=== PATIENT | male | born 1960 | race Caucasian/White ===

== ENCOUNTER → 2019-07-27 13:18 | Outpatient (BNVA) | payer MEDICARE, SELFPAY | PROVIDERS: Visit Provider Family Medicine | DX: G89.4 Chronic pain syndrome (principal); E78.2 Mixed hyperlipidemia; E11.9 Type 2 diabetes mellitus without complications; Z79.4 Long term (current) use of insulin; I10 Essential (primary) hypertension; G62.9 Polyneuropathy, unspecified | CPT/HCPCS: 80053; 80061; 83036; 85025 ==

== ENCOUNTER 2019-11-16 07:52 | Outpatient (CLI) | payer MEDICARE, SELFPAY ==
--- NOTE | 2019-11-16 08:05 | MR_ITS ---
WS: [id number] MRI LUMBAR SPINE NONCONTRAST TECHNIQUE: Sagittal T1, T2 and STIR imaging. Axial T1 and T2 imaging. CLINICAL INFORMATION: LOW BACK PAIN COMPARISON: None. FINDINGS: Mild lumbar curve. No acute compression. Chronic anterior wedging at L1 with endplate Schmorl's node. No high-grade central canal stenosis. L1-L2: Normal. L2-L3: Normal. L3-L4: Slight anterolisthesis. Mild annular bulging with moderate central canal stenosis. Narrowing o f the subarticular recess bilaterally. Mild facet arthropathy. Moderate right and mild left foraminal narrowing with small foraminal protrusions. L4-L5: Slight anterolisthesis. Annular bulging in combination with facet arthropathy results in moder ate central canal stenosis. Impingement on traversing L5 nerve roots. Small facet effusions. Moderate bilateral foraminal narrowing. L5-S1: Mild disc bulging with osteophytic ridging. Slight effacement of ventral thecal sac. Slight im pingement traversing right greater than left S1 nerve roots. Mild facet arthropathy. Mild right great er than left foraminal narrowing. Visualized pelvic bony structures: Normal. Paravertebral soft tissues: Normal. MR/MR lumbar spine wo con* [id number] IMPRESSION: 1. Mild lumbar curve. No acute compression. No high-grade central canal stenos is. 2. Mild anterior wedging at L1 with endplate Schmorl's node. No acute compress ion fractures. 3. Slight anterolisthesis L3 on L4 and L4 on L5 with moderate central canal st enosis and impingement on the subarticular recess bilaterally. Moderate facet a rthropathy at these levels. 4. Moderate foraminal narrowing worse at right L3-L4, bilateral L4-5. 5. Small central disc protrusion L5-S1 with slight encroachment on the anderson ing right S1 nerve root.
--- NOTE | 2019-11-16 08:11 | XR_ITS ---
WS: [id number] LUMBAR SPINE FLEXION AND EXTENSION TECHNIQUE: 3 views of the lumbar spine: Lateral neutral, flexion, and extension views. CLINICAL INFORMATION: LOW BACK PAIN COMPARISON: None. FINDINGS: Osteopenia. Grade 1 anterolisthesis L4 on L5 measuring 5.2 mm. This increases to 9.2 mm in flexion an d decreases to 3 mm in extension. Grade 1 anterolisthesis L3 on L4 measuring 4.6 mm. This increases on flexion to 6.4 mm and decreases to 5.1 mm. Disc space heights relatively well-preserved. Chronic anterior wedging at L1. Mild disc space narrowi ng lower thoracic spine. XR/XR lumbar spine f/e only [id number] IMPRESSION: 1. Grade 1 anterolisthesis L4 on L5 measuring 5.2 mm which increases on flexio n and decreases on extension with mild to moderate instability. 2. Mild instability at the L3-4 level. 3. Moderate facet arthropathy L4-L5 and L5-S1.
== END 2019-11-16 07:53 | disposition home or self-care (01) ==
LOC: RADWPI 07:59
PROVIDERS: Family Provider Family Medicine; PCP Family Medicine; Visit Provider Nurse Practitioner
DX: M53.2X6 Spinal instabilities, lumbar region (principal); M47.817 Spondylosis without myelopathy or radiculopathy, lumbosacral region; M48.56XA Collapsed vertebra, not elsewhere classified, lumbar region, initial encounter for fracture; M51.27 Other intervertebral disc displacement, lumbosacral region; M48.061 Spinal stenosis, lumbar region without neurogenic claudication; M51.46 Schmorl's nodes, lumbar region
CPT/HCPCS: 72120; 72148

== ENCOUNTER 2019-12-02 20:00 | Outpatient (CLI) | payer MEDICARE, SELFPAY | END 2019-12-02 20:01 | disposition home or self-care (01) | LOC: SLEEP 12-03 09:33 | PROVIDERS: Family Provider Family Medicine; PCP Family Medicine; Visit Provider Family Medicine | DX: G47.33 Obstructive sleep apnea (adult) (pediatric) (principal) | CPT/HCPCS: 95810 ==

== ENCOUNTER 2020-01-12 13:55 | Emergency (ER) | payer MEDICARE, SELFPAY ==
[2020-01-12 14:13] VITALS: BP 92/54; PULSE 96; RESP 18; TEMP 37.3; O2SAT 96; BMI 36.9
--- NOTE | 2020-01-12 14:30 | CT_ITS ---
WS: [id number] CT ABDOMEN AND PELVIS NONCONTRAST HISTORY: Flank/Abdominal Pain TECHNIQUE: Imaging performed through the abdomen and pelvis. Coronal and sagittal reformats are submi tted. All CT scans at [facility] use at least one of these dose optimization techniques: automated exposure control; mA and/or kV adjustment per patient size (includes targeted exams where d ose is matched to clinical indication); or iterative reconstruction. DLP: 2024.47 mGy.cm COMPARISON: None available. Lower thorax: Emphysematous changes at the lung bases. Liver: Moderate hepatomegaly with diffuse hepatic steatosis. No bile duct dilatation. Gallbladder: Normal gallbladder. Pancreas: Normal. Spleen: Normal. Adrenal glands: Normal. Right kidney: Normal size with no stones, masses or atrophy. Left kidney: Normal size with no stones, mass or atrophy. Atherosclerosis aorta. No aneurysm. No free fluid, intraperitoneal air or significant lymphadenopathy. GI tract: Normal appendix. No GI tract obstruction. Numerous diverticula in the sigmoid colon without acute inflammation. Abdominal wall: Intact abdominal wall. Marked atrophy of the RIGHT external oblique muscles. Pelvis: Well-distended urinary bladder. No free fluid in the pelvis. Indeterminate inguinal and iliac lymph nodes. Largest measures 12 mm on the LEFT. No enlargement the prostate gland. Central prostate gland calcifications. Osseous structures: Mild compression fracture of L1 appears chronic. No osteoblastic or osteolytic di sease. CT/CT kidney stone [id number] IMPRESSION: 1. No renal obstruction or calcifications. 2. Chronic anterior wedging of L1. 3. Normal appendix. 4. Atherosclerosis aorta. 5. Moderate hepatomegaly with hepatic steatosis.
[2020-01-12] MEDS: sodium chloride 0.9% 1,000 ML 100 ML IV (14:53)
[2020-01-12] MEDS: ondansetron 2 mg/ML SDV 2 mL 4 MG IVP (14:55)
[2020-01-12 14:56] VITALS: RESP 20; O2SAT 96
[2020-01-12] MEDS: HYDROmorphone 1 mg/mL INJ 1 mL IVP (14:56)
[2020-01-12 14:57] LABS: Basophils % 0.6 %; Eosinophils % 0.2 %; Hemoglobin 14.8 g/dL (11.7-16.6); Lymphocytes % 19.5 %; Mean Corpuscular HGB Conc 32.9 g/dL (30.0-36.0); Mean Corpuscular Hemoglobin 29.2 pg (28.0-34.0); Mean Corpuscular Volume 88.9 fL (80-94); Mean Platelet Volume 9.5 fL (7.4-10.4); Monocytes # 0.7 10^3/uL (0.2-0.9); Monocytes % 15.2 %; Neutrophils % 63.7 %; Nucleated Red Blood Cells % 0 %; Platelet Count 282 10^3/cmm (130-400); Red Blood Count 5.06 10^6/uL (4.1-5.3); Red Cell Distribution Width 12.9 % (12.1-15.1); White Blood Count 4.9 10^3/uL (4.0-10.0)
--- NOTE | 2020-01-12 14:57 | PC.NURSE ---
PT INFORMED THAT AFTER ADM OF HYDROMORPHONE THAT HE WOULD NEED A OXIDE FURNACE TENDER. PT VERBALIZED, I CAN GET ONE .
--- NOTE | 2020-01-12 15:01 | ED_ITS ---
HPI - Male Genitourinary General: Chief complaint: Urogenital-Male Stated complaint: ABD AND FLANK PAIN Time Seen by Provider: 01/12/20 14:25 Source: patient Mode of arrival: ambulatory Limitations: no limitations History of Present Illness: HPI Narrative: And flank pain. He states at times the pain will radiate around to his abdomen. He denies any fevers or chills. Patient denies any urinary symptoms such as urinary frequency/urgency or dysuria. He does not believe he has any hematuria. He has had no fever. He does state that at times the pain will get so severe and will call some nauseousness and he will almost vomit. He denies any chest pain or shortness of breath. Patient states he is also had diarrhea 2 different days. In total the symptoms have been going on for almost a week. The patient states he has had similar symptoms in the past but never as severe. He states at this time his back hurts worse when he bends over or moves in certain positions. The abdominal pain and diarrhea have subsided. At no time is he had any blood in his stools or melanotic stools. Patient denies any other symptoms at this time other than back pain that is worsened by movement and certain positions. He adamantly denies any loss of bowel or bladder control, saddle anesthesia or numbness or weakness or pain radiating down his legs.Vance is a nice 59-year-old male who comes in complaining of Associated symptoms: Reports nausea and vomiting; Deny dysuria or hematuria Review of Systems Const: Denies: fever(s), chills, body aches, fatigue, malaise or diaphoresis Eyes: Denies: change in vision, blurry vision, photophobia, eye discomfort, eye discharge or eye redness ENMT: Denies: throat pain, odynophagia, hoarseness, swelling of lips/tongue, ear or mastoid pain, ear discharge, change in hearing or nasal discharge Card: Denies: chest pain, palpitations, irregular heart rhythm, edema, lightheadedness, syncope, pre-syncope, dyspnea on exertion or orthopnea Resp: Denies: dyspnea, productive cough, non-productive cough, wheezing, hemoptysis or chest congestion GI: Reports: abdominal pain, nausea and vomiting; Denies: hematemesis, coffee ground emesis, heartburn, constipation, GI cramping, hematochezia or melena : Reports: flank pain; Denies: dysuria, urinary frequency, urinary urgency or hematuria Musc: Reports: back pain; Denies: neck pain, extremity pain, extremity swelling, joint pain, joint swelling, joint redness, joint warmth or joint stiffness Skin/Breast: Denies: rash, pruritus, erythema or skin tenderness Neuro: Denies: headache(s), numbness in extremities, weakness in extremities, sensory changes, lack of coordination, difficulty walking, dizziness, vertigo, confusion, Slurred speech present or seizure-like activity Tomas/Lymph: Denies: easy bruising, easy bleeding, petechiae, purpura or enlarged lymph nodes All/Imm: Denies: urticaria, throat swelling, tongue swelling, facial swelling or acute wheezing PFSH ED PFSH: Medical History CAD (coronary artery disease) Chronic pain Diabetes Hyperlipidemia Hypertension Lumbar spondylosis Surgical History History of carpal tunnel surgery of left wrist Family History Other Diabetes Denies family history of Anesthesia complication Bleeding disorder Social History Smoking and tobacco status: current every day smoker cigarettes Packs smoked per day: 0.5 Years cigarettes smoked: 30 Quit status (tobacco): has tried quititng Alcohol intake: former Former alcohol use details: sober x 15 yrs Adopted: No Caregiver/support person: Yes Lives independently: Yes Household members: significant other Housing: House Marital status: service: No Current occupational status: retired and disabled Current occupational exposures/hazards: No Pets and animals: No History of recent travel: No Leisure activites: exercise Sexually active: No Current gender identity: Male Special julia needs: No Agree to transfusion: Yes Physical Exam Const: COMMON NORMALS: no acute distress, patient oriented x3, no limitations, healthy appearing and well nourished GENERAL APPEARANCE: cooperative, well kempt and well developed HENMT: COMMON NORMALS: normocephalic, atraumatic, external ears normal, EAC's normal and Normal external nose present HEAD & SCALP: normal to inspection, normocephalic and atraumatic FACE & SINUS: normal facial exam and face symmetric NOSE: Normal external nose present and Normal nares present EXTERNAL EAR: Yes external ears normal EXTERNAL AUDITORY CANAL: EAC's normal MOUTH: Normal oral and palatal mucosa present, lip normal and tongue normal Eye: COMMON NORMALS: Equal, round and reactive pupils present and conjunctivae normal GENERAL EYE: appearance normal, both eyes and all related structures ALIGNMENT: Yes alignment normal PERIORBITAL: periorbital findings normal EYELID: eyelids normal CONJUNCTIVA: Yes conjunctivae normal SCLERA: sclerae normal PUPIL: Yes Equal, round and reactive pupils present Neck/C-Spine: COMMON NORMALS: full ROM, no lymphadenopathy, supple, no meningeal signs and no JVD GENERAL: Yes normal visual inspection and Yes trachea midline Chest: COMMONS NORMALS: normal inspection of the chest and normal palpation of entire chest wall Resp: COMMON NORMALS: normal respiratory effort, No retractions, No use of accessory muscles and clear to auscultation bilaterally EFFORT & INSPECTION: Yes able to speak in complete sentences and Yes symmetric chest movement AUSCULTATION: clear to auscultation bilaterally, no crackles, no rales, no rh onchi and no wheezes Cardio: COMMON NORMALS: no JVD, regular rate, regular rhythm, S1 normal heart sound present and S2 normal heart sound present RATE: regular rate RHYTHM: regular rhythm HEART SOUNDS: S1 normal heart sound present, S2 normal heart sound present, no click, no gallops, no murmurs, no rubs and abnormal split S2 GI: COMMON NORMALS: Soft to palpation and No hepatosplenomegaly present PALPATION: Yes Soft to palpation, No Tenderness to palpation present (GI), No Guarding due to palpation present (GI), No Rigid due to palpation, Yes No hepatosplenomegaly present, No Hernia present, No Palpable mass present and No Pulsatile mass present : COMMON NORMALS: Yes no CVA tenderness BLADDER/KIDNEY EXAM: Yes no CVA tenderness Back/Pelvis: COMMON NORMALS: no CVA tenderness, thoracic and lumbar spine normal to inspection, no thoracic nor lumbar tenderness and thoraco-lumbar ROM normal Extremity: COMMON NORMALS: normal to inspection, full ROM, capillary refill normal, no joint enlargement, no clubbing, cyanosis or edema and no calf tenderness Neuro: COMMON NORMALS: patient oriented x3, CN's II-XII intact bilaterally, moves all extremities, no focal motor deficits and no sensory deficits noted MENINGEAL SIGNS: Yes no meningeal signs SPEECH: speech normal Psych: COMMON NORMALS: mental status grossly normal, Normal thought process present, cooperative, normal affect, speech normal and activity/motor behavior normal APPEARANCE: Yes well kempt SPEECH: Yes normal speech THOUGHT PROCESS: Normal thought process present Skin: COMMON NORMALS: no rashes or lesions noted, turgor normal, no jaundice, no petechiae and no mottling GENERAL SKIN EXAM: no rashes or lesions noted and turgor normal Course Vital Signs: Vital signs: Vital Signs Temperature 99.2 F 01/12/20 14:13 Pulse Rate 96 01/12/20 14:13 Respiratory Rate 20 H 01/12/20 14:56 Blood Pressure 92/54 01/12/20 14:13 Pulse Oximetry 96 01/12/20 14:56 MDM - Male MDM Narrative: Medical decision making narrative: Pulse work-up here has been unrevealing. CT renal shows no evidence of kidney stones. He said he thought this was a kidney stone but there is no evidence of bowel involvement either. His appendix is normal. There is no peritonitis on exam. All of his pain at this time seems to be localized to his back. There is mild if any paraspinal muscle spasms. There is no sign of CRAFTI as a cause for his pain. I believe the patient may have just flared up chronic back pain which he does have a history of. He states the [place] takes care of most of his pain but he is having some additional pain. I will place him on Flexeril and nonsteroidal in addition for his pain. Patient states he is ready to go home and is feeling better. I will discharge him home with strict instructions to follow-up with his doctor soon as possible. He agrees to return should his symptoms change or worsen but this time he is feeling better and is ready for discharge. Lab Data: Attestation: I reviewed the patient's lab results. Labs: Lab Results 01/12/20 01/12/20 01/12/20 Range/Units 14:38 14:49 14:49 WBC 4.9 (4.0-10.0) 10^3/ uL RBC 5.06 (4.1-5.3) 10^6/u L Hgb 14.8 (11.7-16.6) g/dL Hct 45.0 (42.0-52.0) % MCV 88.9 (80-94) fL MCH 29.2 (28.0-34.0) pg MCHC 32.9 (30.0-36.0) g/dL RDW 12.9 (12.1-15.1) % Plt Count 282 (130-400) 10^3/c mm MPV 9.5 (7.4-10.4) fL Neut % (Auto) 63.7 % Lymph % (Auto) 19.5 % [place] % (Auto) 15.2 % Eos % (Auto) 0.2 % Baso % (Auto) 0.6 % Neut # (Auto) 3.10 (1.8-7.7) 10^3/u L Lymph # (Auto) 1.0 (0.8-4.8) 10^3/u L [place] # (Auto) 0.7 (0.2-0.9) 10^3/u L Eos # (Auto) 0.0 (0.0-0.8) 10^3/u L Baso # (Auto) 0.0 (0.0-0.1) 10^3/u L Nucleated RBC % (a uto) 0 % Nucleated RBCs # 0.0 /100WBC Sodium 129 L (136-145) mmol/L Potassium 3.4 L (3.5-5.1) mmol/L Chloride 90 L (98-107) mmol/L Carbon Dioxide 25 (22-29) mmol/L Anion Gap 17.4 (5-19) BUN 21 H (6-20) mg/dL Creatinine 1.0 (0.7-1.2) mg/dL GFR Calculation 76.5 L (90-130) mL/min Glucose 378 H (65-115) mg/dL Calculated Osmolal ity 280 L (285-295) mOsm/k g Calcium 8.7 (8.5-10.5) mg/dL Magnesium 1.5 L (1.7-2.3) mg/dL Total Bilirubin 0.3 (0.15-1.2) mg/dL AST 23 (0-40) U/L ALT 26 (0-41) U/L Alkaline Phosphata se 62 (40-130) IU/L Total Protein 7.1 (6.6-8.7) g/dL Albumin 4.2 (3.5-5.2) g/dL Globulin 2.9 (1.3-4.6) g/dL Lipase 39 (13-60) U/L Urine Color Yellow (Yellow) Urine Appearance Clear (CLEAR) Urine pH 5 (5-7) Ur Specific Gravit y 1.020 (1.005-1.030) Urine Protein Neg (Negative) Urine Glucose (UA) 4+ H (Normal) Urine Ketones Negative (Negative) Urine Blood Neg (Negative) Urine Nitrate Negative (Negative) Urine Bilirubin Neg (NEGATIVE) Urine Urobilinogen 1 H (Negative) mg/dL Ur Leukocyte Maisha ase Negative (Negative) Urine RBC None (0-2) /hpf Urine WBC 0-4 H (0-5) /hpf Ur Squamous Epith Cells 0-4 H (0-5) Amorphous Sediment Not Reportable Urine Bacteria 1+ H (NONE) Hyaline Casts 0-4 H Urine Mucus 1+ Imaging Data: CT Abd/Pel: Radiologist's impression: [address] [address] [address] Scan Report Signed Patient: Vance Moreno Unit #: [id number] : 1960 Age/Sex: 59 / M ADM Date: 01/12/20 Loc: ER Room/Bed: Attending Dr: Ada Mueller MD Ordering Provider/Ordering MD: Megan Johnson DO Date of Service: 01/12/20 Procedure(s): CT kidney stone [id number] Accession Number(s): [id number] Report Number: [id number] WS: [id number] CT ABDOMEN AND PELVIS NONCONTRAST HISTORY: Flank/Abdominal Pain TECHNIQUE: Imaging performed through the abdomen and pelvis. Coronal and sagittal reformats are submitted. All CT scans at [facility] use at least one of these dose optimization techniques: automated exposure control; mA and/or kV adjustment per patient size (includes targeted exams where dose is matched to clinical indication); or iterative reconstruction. DLP: 2024.47 mGy.cm COMPARISON: None available. Lower thorax: Emphysematous changes at the lung bases. Liver: Moderate hepatomegaly with diffuse hepatic steatosis. No bile duct dilatation. Gallbladder: Normal gallbladder. Pancreas: Normal. Spleen: Normal. Adrenal glands: Normal. Right kidney: Normal size with no stones, masses or atrophy. Left kidney: Normal size with no stones, mass or atrophy. Atherosclerosis aorta. No aneurysm. No free fluid, intraperitoneal air or significant lymphadenopathy. GI tract: Normal appendix. No GI tract obstruction. Numerous diverticula in the sigmoid colon without acute inflammation. Abdominal wall: Intact abdominal wall. Marked atrophy of the RIGHT external oblique muscles. Pelvis: Well-distended urinary bladder. No free fluid in the pelvis. Indeterminate inguinal and iliac lymph nodes. Largest measures 12 mm on the LEFT. No enlargement the prostate gland. Central prostate gland calcifications. Osseous structures: Mild compression fracture of L1 appears chronic. No osteoblastic or osteolytic disease. CT/CT kidney stone [id number] IMPRESSION: 1. No renal obstruction or calcifications. 2. Chronic anterior wedging of L1. 3. Normal appendix. 4. Atherosclerosis aorta. 5. Moderate hepatomegaly with hepatic steatosis. Dictated By: Juli Chaudhary DO Signed By: Juli Chaudhary DO Signed Date/Time: 01/12/201544 DD/ 39 Discharge Plan Discharge Patient Disposition: Home Clinical Impression: Back pain Qualifiers: Back pain location: low back pain Chronicity: acute Back pain laterality: bilateral Sciatica presence: without sciatica Qualified Code(s): M54.5 - Low back pain Abdominal pain Qualifiers: Abdominal location: generalized Qualified Code(s): R10.84 - Generalized abdominal pain Condition: Stable Prescriptions: New cyclobenzaprine 10 mg tablet 10 mg PO TID PRN (Reason: muscle spasm) Qty: 30 RF: 0 ibuprofen 800 mg tablet 200 mg PO TID PRN (Reason: pain) Qty: 30 RF: 0 No Action cetirizine [Zyrtec] 10 mg tablet 10 mg PO DAILY Qty: 30 RF: 2 amlodipine 5 mg tablet 5 mg PO DAILY RF: 0 aspirin [Adult Low Dose Aspirin] 81 mg tablet,delayed release (DR/EC) 81 mg PO DAILY RF: 0 atorvastatin 40 mg tablet 40 mg PO DAILY RF: 0 clopidogrel 75 mg tablet 75 mg PO DAILY RF: 0 fenofibrate 160 mg tablet 160 mg PO DAILY RF: 0 nitroglycerin [Nitrostat] 0.4 mg tablet, sublingual 0.4 mg SUBLINGUAL Q5M PRN (Reason: chest pains) RF: 0 Lantus U-100 Insulin 100 unit/mL solution 110 unit SUBCUT BID RF: 0 diclofenac sodium [Voltaren] 1 % gel 2 gm TOPICAL QID Qty: 100 RF: 2 dextroamphetamine-amphetamine [Adderall] 10 mg tablet 10 mg PO DAILY PRN (Reason: attention) 30 Days Qty: 14 RF: 0 lisinopril 5 mg tablet 5 mg PO DAILY Qty: 90 RF: 3 chlorthalidone 25 mg tablet 25 mg PO DAILY Qty: 90 RF: 3 potassium chloride 10 mEq capsule, extended release 10 meq PO DAILY Qty: 90 RF: 3 hydrocodone-acetaminophen 10-325 mg tablet 1 tab PO Q8H PRN (Reason: pain) 30 Days Qty: 90 RF: 0 tamsulosin 0.4 mg capsule 0.4 mg PO DAILY Qty: 90 RF: 0 gabapentin 300 mg capsule 300 mg PO TID Qty: 270 RF: 0 fluticasone propionate 50 mcg/actuation spray,suspension 2 spray intranasal DAILY 90 Days Qty: 48 RF: 2 metformin 500 mg tablet 500 mg PO BID Qty: 60 RF: 0 Discharge Orders: Discharge Order (Routine); Ordered 01/12/20 Ordered By: Megan Johnson Referrals: Ada Mueller MD [Primary Care Provider] - 1-3 days Discharge Diet: Advance as tolerated Discharge Activity: Resume usual activity Patient Instructions: Abdominal Pain (ED), Back Pain (ED) Activity Restrictions/Additional Instructions: Please return to the ER immediately for any of the signs or symptoms listed on your discharge instruction sheets, worsening/changing of your symptoms, you are not getting better as quickly as expected, or for ANY other cause or concerns. Return to the ER for increased pain, loss of bowel or bladder control, fever, return of abdominal pain, or for any other cause for concern. Be certain to follow-up with Dr. Mueller as soon as possible for recheck and for further evaluation and care. Coding Level of Care Code ED Assistant Housekeeping Manager for Chg Fwd Exam Comprehensive
[2020-01-12 15:13] LABS: Alanine Aminotransferase 26 U/L (0-41); Albumin Level 4.2 g/dL (3.5-5.2); Alkaline Phosphatase 62 IU/L (40-130); Anion Gap 17.4 (5-19); Aspartate Amino Transferase 23 U/L (0-40); Blood Urea Nitrogen 21 mg/dL (6-20); Calcium 8.7 mg/dL (8.5-10.5); Carbon Dioxide 25 mmol/L (22-29); Chloride 90 mmol/L (98-107); Globulin 2.9 g/dL (1.3-4.6); Glomerular Filtration Rate 76.5 mL/min (90-130); Glucose 378 mg/dL (65-115); Lipase 39 U/L (13-60); Magnesium 1.5 mg/dL (1.7-2.3); Osmolality Calculated 280 mOsm/kg (285-295); Potassium 3.4 mmol/L (3.5-5.1); Sodium 129 mmol/L (136-145); Total Bilirubin 0.3 mg/dL (0.15-1.2); Total Protein 7.1 g/dL (6.6-8.7)
[2020-01-12 15:14] LABS: Bilirubin Urine Neg (NEGATIVE); Blood Urine Neg (Negative); Glucose Urine UA 4+ (Normal); Ketones Urine Negative (Negative); Leukocyte Esterase Urine Negative (Negative); Nitrate Urine Negative (Negative); Protein Urine Neg (Negative); Urine Appearance Clear (CLEAR); Urine Color Yellow (Yellow); Urobilinogen Urine 1 mg/dL (Negative); pH Urine 5 (5-7)
[2020-01-12 15:15] LABS: Bacteria Urine 1+; Hyaline Casts Urine 0-4; Squamous Epithelial Cell Urine 0-4 (0-5)
[2020-01-12 15:16] LABS: WBC Urine 0-4 /hpf (0-5)
[2020-01-12 15:17] LABS: Add Urine Culture? No; Mucus Urine 1+
[2020-01-12] MEDS: potassium chloride ER 10 mEq Tablet 40 MEQ PO (16:36)
[2020-01-12 16:42] VITALS: BP 99/64; PULSE 92; RESP 16; O2SAT 93
--- NOTE | 2020-01-12 16:44 | PC.NURSE ---
[place] PT IS IN NAD. PT STATES, I'M A 100% BETTER RIGHT NOW THANKS TO YOU GUYS . PT IS AMB WITH A STEADY GAIT UNASSISTED.
== END 2020-01-12 22:37 | disposition home or self-care (01) ==
LOC: ER 13:55
PROVIDERS: Emergency Provider Emergency Medicine; PCP Family Medicine; Visit Provider Family Medicine
DX: R10.84 Generalized abdominal pain (principal); M54.5 Low back pain; Z79.02 Long term (current) use of antithrombotics/antiplatelets; Z79.82 Long term (current) use of aspirin; Z79.4 Long term (current) use of insulin; I25.10 Atherosclerotic heart disease of native coronary artery without angina pectoris; E11.9 Type 2 diabetes mellitus without complications; E78.5 Hyperlipidemia, unspecified; I10 Essential (primary) hypertension; F17.210 Nicotine dependence, cigarettes, uncomplicated
CPT/HCPCS: 12345; 74176; 80053; 81001; 83690; 83735; 85025; 96361; 96374; 96375; 99282; J1170; J2405; J7030

== ENCOUNTER 2020-01-15 14:01 | Emergency (ER) | payer MEDICARE, SELFPAY ==
[2020-01-15 14:08] VITALS: BP 132/78; PULSE 95; RESP 18; TEMP 36.6; O2SAT 92; BMI 33.5
--- NOTE | 2020-01-15 14:26 | ED_ITS ---
HPI - Abdominal Pain General: Chief Complaint: Abdominal Pain Stated Complaint: r side abd pain and swelling Time Seen by Provider: 01/15/20 14:07 History of Present Illness: HPI narrative: Patient complained about abdominal pain times last couple days. Said his back is feeling much better now that he did the other day. But now he said he thinks his abdomen swelling it hurts. MD elicited complaint: abdominal pain Onset (ago): day(s) Pain Consistency: constant Location: RLQ Severity: similar to previous episodes Quality: aching and fullness Radiation: none Relieving factors: nothing Associated Symptoms: Reports no associated symptoms and nausea; Denies chills, fever(s) and vomiting Review of Systems Const: Denies: fever(s), chills or body aches Eyes: Denies: change in vision or blurry vision ENMT: Denies: throat pain or nasal congestion Card: Denies: chest pain or dyspnea on exertion Resp: Denies: dyspnea, productive cough or non-productive cough GI: Reports: abdominal pain and nausea; Denies: vomiting : Denies: difficulty urinating Musc: Denies: extremity pain Skin/Breast: Denies: rash Neuro: Denies: headache(s) Psych: Denies: anxiety or depression Tomas/Lymph: Denies: easy bruising PFSH ED PFSH: Medical History (Updated 01/15/20 @ 15:30 by MIKKI Ridley) CAD (coronary artery disease) Chronic pain Diabetes Hyperlipidemia Hypertension Lumbar spondylosis Surgical History History of carpal tunnel surgery of left wrist Family History Other Diabetes Denies family history of Anesthesia complication Bleeding disorder Social History Smoking and tobacco status: current every day smoker cigarettes Packs smoked per day: 0.5 Years cigarettes smoked: 30 Quit status (tobacco): has tried quititng Alcohol intake: former Former alcohol use details: sober x 15 yrs Adopted: No Caregiver/support person: Yes Lives independently: Yes Household members: significant other Housing: House Marital status: service: No Current occupational status: retired and disabled Current occupational exposures/hazards: No Pets and animals: No History of recent travel: No Leisure activites: exercise Sexually active: No Current gender identity: Male Special julia needs: No Agree to transfusion: Yes Physical Exam Const: COMMON NORMALS: no acute distress, average body habitus and patient oriented x3 HENMT: COMMON NORMALS: normocephalic HEAD & SCALP: normal to inspection and normocephalic FACE & SINUS: normal facial exam Eye: COMMON NORMALS: conjunctivae normal GENERAL EYE: appearance normal, both eyes and all related structures CONJUNCTIVA: Yes conjunctivae normal Neck/C-Spine: COMMON NORMALS: no JVD Chest: COMMONS NORMALS: normal inspection of the chest Resp: COMMON NORMALS: normal respiratory effort and clear to auscultation bilaterally AUSCULTATION: clear to auscultation bilaterally Cardio: COMMON NORMALS: no JVD, regular rate and regular rhythm RATE: regular rate RHYTHM: regular rhythm GI: COMMON NORMALS: Normal to inspection, nondistended, normoactive bowel sounds present AUSCULTATION: Yes normoactive bowel sounds PALPATION: Yes Tenderness to palpation present (GI) Details: RLQ Extremity: COMMON NORMALS: normal to inspection and full ROM Neuro: COMMON NORMALS: patient oriented x3 Course Vital Signs: Vital signs: Vital Signs Temperature 97.8 F 01/15/20 14:08 Pulse Rate 95 01/15/20 14:08 Respiratory Rate 18 01/15/20 14:08 Blood Pressure 132/78 01/15/20 14:08 Pulse Oximetry 92 01/15/20 14:08 MDM - Abdominal Pain MDM Narrative: Medical decision making narrative: Discussed case with Dr. Garcia went over the labs and plan of care Lab Data: Labs: Lab Results 01/15/20 01/15/20 Range/Units 14:50 14:50 WBC 5.3 (4.0-10.0) 10^3/ uL RBC 5.36 H (4.1-5.3) 10^6/u L Hgb 15.8 (11.7-16.6) g/dL Hct 46.6 (42.0-52.0) % MCV 86.9 (80-94) fL MCH 29.5 (28.0-34.0) pg MCHC 33.9 (30.0-36.0) g/dL RDW 12.8 (12.1-15.1) % Plt Count 236 (130-400) 10^3/c mm MPV 9.6 (7.4-10.4) fL Neut % (Auto) 47.6 % Lymph % (Auto) 37.9 % [place] % (Auto) 12.6 % Eos % (Auto) 1.3 % Baso % (Auto) 0.2 % Neut # (Auto) 2.50 (1.8-7.7) 10^3/u L Lymph # (Auto) 2.0 (0.8-4.8) 10^3/u L [place] # (Auto) 0.7 (0.2-0.9) 10^3/u L Eos # (Auto) 0.1 (0.0-0.8) 10^3/u L Baso # (Auto) 0.0 (0.0-0.1) 10^3/u L Nucleated RBC % (a uto) 0 % Nucleated RBCs # 0.0 /100WBC Sodium 133 L (136-145) mmol/L Potassium 3.0 L (3.5-5.1) mmol/L Chloride 94 L (98-107) mmol/L Carbon Dioxide 26 (22-29) mmol/L Anion Gap 16.0 (5-19) BUN 17 (6-20) mg/dL Creatinine 0.8 (0.7-1.2) mg/dL GFR Calculation 98.9 (90-130) mL/min Glucose 331 H (65-115) mg/dL Calculated Osmolal ity 285 (285-295) mOsm/k g Calcium 8.8 (8.5-10.5) mg/dL Discharge Plan Discharge Patient Disposition: Home Clinical Impression: Diabetic gastroparalysis Apnea, sleep Qualifiers: Sleep apnea type: primary central Qualified Code(s): G47.31 - Primary central sleep apnea Condition: Stable Prescriptions: New Reglan 10 mg tablet 10 mg PO Q6H 7 Days Qty: 28 RF: 0 No Action cetirizine [Zyrtec] 10 mg tablet 10 mg PO DAILY Qty: 30 RF: 2 amlodipine 5 mg tablet 5 mg PO DAILY RF: 0 aspirin [Adult Low Dose Aspirin] 81 mg tablet,delayed release (DR/EC) 81 mg PO DAILY RF: 0 atorvastatin 40 mg tablet 40 mg PO DAILY RF: 0 clopidogrel 75 mg tablet 75 mg PO DAILY RF: 0 fenofibrate 160 mg tablet 160 mg PO DAILY RF: 0 nitroglycerin [Nitrostat] 0.4 mg tablet, sublingual 0.4 mg SUBLINGUAL Q5M PRN (Reason: chest pains) RF: 0 Lantus U-100 Insulin 100 unit/mL solution 110 unit SUBCUT BID RF: 0 diclofenac sodium [Voltaren] 1 % gel 2 gm TOPICAL QID Qty: 100 RF: 2 dextroamphetamine-amphetamine [Adderall] 10 mg tablet 10 mg PO DAILY PRN (Reason: attention) 30 Days Qty: 14 RF: 0 lisinopril 5 mg tablet 5 mg PO DAILY Qty: 90 RF: 3 chlorthalidone 25 mg tablet 25 mg PO DAILY Qty: 90 RF: 3 potassium chloride 10 mEq capsule, extended release 10 meq PO DAILY Qty: 90 RF: 3 hydrocodone-acetaminophen 10-325 mg tablet 1 tab PO Q8H PRN (Reason: pain) 30 Days Qty: 90 RF: 0 tamsulosin 0.4 mg capsule 0.4 mg PO DAILY Qty: 90 RF: 0 gabapentin 300 mg capsule 300 mg PO TID Qty: 270 RF: 0 fluticasone propionate 50 mcg/actuation spray,suspension 2 spray intranasal DAILY 90 Days Qty: 48 RF: 2 metformin 500 mg tablet 500 mg PO BID Qty: 60 RF: 0 cyclobenzaprine 10 mg tablet 10 mg PO TID PRN (Reason: muscle spasm) Qty: 30 RF: 0 ibuprofen 800 mg tablet 200 mg PO TID PRN (Reason: pain) Qty: 30 RF: 0 Discharge Orders: Discharge Order (Routine); Ordered 01/15/20 Ordered By: Neal Sargent Referrals: Ada Mueller MD [Primary Care Provider] - Discharge Diet: Diabetic Discharge Activity: Increase activity as tolerated Patient Instructions: Sleep Apnea Syndrome (GEN), Diabetic gastroparesis (GEN), Hypokalemia (ED) Activity Restrictions/Additional Instructions: Follow-up with medical provider as directed. Take medications as prescribed. Return to the ER or your medical provider if condition worsens. Please read and understand discharge instructions. If any questions ask please. Make sure you try to keep your sugar under control. Increase her potassium to 4 capsules daily x1 week. Follow-up with your family medical provider next week. Repeat labs in 1 week Coding Level of Care Code ED Planning Intern for Chg Fwd Exam Comprehensive
[2020-01-15] MEDS: ondansetron 4 MG Tablet PO (14:29)
[2020-01-15 14:55] LABS: Basophils % 0.2 %; Eosinophils # 0.1 10^3/uL (0.0-0.8); Eosinophils % 1.3 %; Hematocrit 46.6 % (42.0-52.0); Hemoglobin 15.8 g/dL (11.7-16.6); Lymphocytes % 37.9 %; Mean Corpuscular HGB Conc 33.9 g/dL (30.0-36.0); Mean Corpuscular Hemoglobin 29.5 pg (28.0-34.0); Mean Corpuscular Volume 86.9 fL (80-94); Mean Platelet Volume 9.6 fL (7.4-10.4); Monocytes # 0.7 10^3/uL (0.2-0.9); Monocytes % 12.6 %; Neutrophils % 47.6 %; Nucleated Red Blood Cells % 0 %; Platelet Count 236 10^3/cmm (130-400); Red Blood Count 5.36 10^6/uL (4.1-5.3); Red Cell Distribution Width 12.8 % (12.1-15.1); White Blood Count 5.3 10^3/uL (4.0-10.0)
[2020-01-15 15:12] LABS: Blood Urea Nitrogen 17 mg/dL (6-20); Calcium 8.8 mg/dL (8.5-10.5); Carbon Dioxide 26 mmol/L (22-29); Chloride 94 mmol/L (98-107); Glomerular Filtration Rate 98.9 mL/min (90-130); Glucose 331 mg/dL (65-115); Osmolality Calculated 285 mOsm/kg (285-295); Sodium 133 mmol/L (136-145)
[2020-01-15 15:15] LABS: Slide Review Slide Review Perform
[2020-01-15] MEDS: potassium chloride ER 10 mEq Tablet 40 MEQ PO (15:38)
[2020-01-15] MEDS: ketorolac 60 mg/2 mL INJ IM (15:41)
[2020-01-15 16:15] VITALS: BP 110/78; PULSE 99; RESP 16; TEMP 36.6; O2SAT 99
== END 2020-01-15 16:17 | disposition home or self-care (01) ==
PROVIDERS: Emergency Provider Nurse Practitioner Family; PCP Family Medicine
DX: E11.43 Type 2 diabetes mellitus with diabetic autonomic (poly)neuropathy (principal); K31.84 Gastroparesis; G47.31 Primary central sleep apnea; Z79.82 Long term (current) use of aspirin; Z79.02 Long term (current) use of antithrombotics/antiplatelets; Z79.4 Long term (current) use of insulin; I25.10 Atherosclerotic heart disease of native coronary artery without angina pectoris; E78.5 Hyperlipidemia, unspecified; I10 Essential (primary) hypertension; F17.210 Nicotine dependence, cigarettes, uncomplicated
CPT/HCPCS: 12345; 36415; 80048; 85025; 96372; 96375; 99281; 99283; J1885; Q0162

== ENCOUNTER 2020-01-20 20:00 | Outpatient (CLI) | payer MEDICARE, SELFPAY | END 2020-01-20 20:01 | disposition home or self-care (01) | LOC: SLEEP 01-21 08:55 | PROVIDERS: PCP Family Medicine; Visit Provider Family Medicine | DX: G47.33 Obstructive sleep apnea (adult) (pediatric) (principal) | CPT/HCPCS: 95811 ==

== ENCOUNTER → 2020-03-10 11:06 | Outpatient (BNVA) | payer MEDICARE, SELFPAY | PROVIDERS: PCP Family Medicine; Visit Provider Family Medicine | DX: I10 Essential (primary) hypertension (principal); E78.2 Mixed hyperlipidemia; E11.65 Type 2 diabetes mellitus with hyperglycemia; J44.9 Chronic obstructive pulmonary disease, unspecified; R53.83 Other fatigue | CPT/HCPCS: 80053; 80061; 83036; 84403; 84443 ==

== ENCOUNTER → 2020-07-26 11:37 | Outpatient (BNVA) | payer MEDICARE, SELFPAY | PROVIDERS: PCP Family Medicine; Visit Provider Family Medicine | DX: E11.65 Type 2 diabetes mellitus with hyperglycemia (principal); I10 Essential (primary) hypertension; E78.2 Mixed hyperlipidemia; L98.9 Disorder of the skin and subcutaneous tissue, unspecified; G47.33 Obstructive sleep apnea (adult) (pediatric) | CPT/HCPCS: 80053; 80061; 83036; 84443 ==

== ENCOUNTER → 2020-10-25 09:43 | Outpatient (BNVA) | payer MEDICARE, SELFPAY | PROVIDERS: PCP Family Medicine; Visit Provider Family Medicine | DX: E11.65 Type 2 diabetes mellitus with hyperglycemia (principal); E29.1 Testicular hypofunction; E78.2 Mixed hyperlipidemia; I10 Essential (primary) hypertension | CPT/HCPCS: 80053; 80061; 83036; 84403; 84443 ==

== ENCOUNTER → 2020-11-08 09:29 | Outpatient (BNVA) | payer MEDICARE, SELFPAY | PROVIDERS: PCP Family Medicine; Visit Provider Family Medicine | DX: R05 Cough (principal); J30.89 Other allergic rhinitis; J20.9 Acute bronchitis, unspecified | CPT/HCPCS: 71046 ==

== ENCOUNTER → 2020-11-10 11:01 | Outpatient (BNVA) | payer MEDICARE, SELFPAY | PROVIDERS: PCP Family Medicine; Visit Provider Family Medicine | DX: J20.9 Acute bronchitis, unspecified (principal) | CPT/HCPCS: 87635 ==

== ENCOUNTER 2020-11-18 13:42 | Emergency (ER) | payer MEDICARE, SELFPAY ==
[2020-11-18 15:10] VITALS: BP 125/77; PULSE 87; RESP 18; TEMP 38.2; O2SAT 93
[2020-11-18 16:45] VITALS: BP 109/61; PULSE 88; O2SAT 90
--- NOTE | 2020-11-18 16:47 | XRR_ITS ---
PROCEDURE INFORMATION: Exam: XR Chest Exam date and time: 11/18/2020 4:47 PM Age: 60 years old Clinical indication: Cough; Additional info: Dyspnea/cough TECHNIQUE: Imaging protocol: XR of the chest. Views: 1 view. COMPARISON: CR XR chest 2V* [id number] 11/08/2020 9:32 AM FINDINGS: Lungs: Reticular interstitial lung changes. No focal airspace consolidation. No focal pulmonary mass. Pleural spaces: Unremarkable. No pleural effusion. No pneumothorax. Heart/Mediastinum: Unremarkable. No cardiomegaly. Bones/joints: Unremarkable. XR/XR chest 1V portable [id number] IMPRESSION: 1. No focal acute airspace disease identified. 2. No significant change from comparison. Interstitial lung disease not excluded.
[2020-11-18 17:05] VITALS: O2SAT 88; O2SAT 93; O2SAT 94
--- NOTE | 2020-11-18 17:19 | ED_ITS ---
HPI - Fever General: Chief Complaint: Fever Stated Complaint: covid positive, sob, h/a, raspy Time Seen by Provider: 11/18/20 16:35 History of Present Illness: HPI Narrative: 60-year-old male presents emergency room with complaints of body aches diarrhea. He was diagnosed with COVID on 11/09 he had symptoms beginning the day prior putting him a day 10 today. He has not had a productive cough. He is still running a low-grade fever. He was started on Zithromax but he has not been on any steroids. He denies any chest pain. He is diabetic he did not receive any monoclonal antibodies MD elicited complaint: fever, malaise and weakness Pertinent past history: other (Recently diagnosed COVID-19) Onset (ago): day(s) () Exacerbating factors: nothing Relieving factors: nothing Associated symptoms: Reports chills, cough, myalgias, nasal congestion, short of breath and sore throat; Deny abdominal pain, flank pain, chest pain, confusion, diarrhea, dysuria, extremity pain, headache(s), nausea, night sweats, rash, rhinorrhea, sinus pain, stiffness, vomiting or weight loss Treatments prior to arrival fever: none Review of Systems Const: Reports: chills; Denies: night sweats ENMT: Reports: nasal congestion; Denies: sinus pain Card: Denies: chest pain Resp: Denies: dyspnea, productive cough or non-productive cough GI: Denies: abdominal pain, nausea, vomiting or diarrhea : Denies: flank pain or dysuria Musc: Denies: extremity pain Skin/Breast: Denies: rash or pruritus Neuro: Denies: headache(s) or confusion PFSH ED PFSH: Medical History Atherosclerotic heart disease of [place] coronary artery without angina pectoris Benign essential HTN CAD (coronary artery disease) Chronic pain Diabetes Hyperlipidemia Hypertension Lumbar spondylosis Obstructive apnea Tooth ache Surgical History History of ankle surgery History of carpal tunnel surgery of left wrist History of kidney surgery History of tonsillectomy and adenoidectomy Hx of eye surgery Hx of sinus surgery Family History Mother CAD (coronary artery disease) Diabetes Lung disease Father CAD (coronary artery disease) Diabetes Stroke Sister CAD (coronary artery disease) Diabetes Brother Cancer Diabetes Lung disease Denies family history of Clotting disorder Dementia Chronic kidney disease (CKD) Suicide Anesthesia complication Bleeding disorder Social History Smoking and tobacco status: current every day smoker cigarettes Packs smoked per day: 0.5 Years cigarettes smoked: 30 Quit status (tobacco): has tried quititng Alcohol intake: former Former alcohol use details: sober x 15 yrs Adopted: No Caregiver/support person: Yes Lives independently: Yes Household members: significant other Housing: House Marital status: service: No Current occupational status: retired and disabled Current occupational exposures/hazards: No Pets and animals: No History of recent travel: No Leisure activites: exercise Sexually active: No Current gender identity: Male Special julia needs: No Agree to transfusion: Yes Physical Exam Const: COMMON NORMALS: no acute distress GENERAL APPEARANCE: cooperative and comfortable ORIENTATION/CONSCIOUSNESS: Yes awake, Yes oriented to person, Yes oriented to place and Yes oriented to time HENMT: COMMON NORMALS: normocephalic, atraumatic and hearing grossly normal bilaterally HEAD & SCALP: normocephalic and atraumatic Neck/C-Spine: COMMON NORMALS: no JVD Resp: COMMON NORMALS: normal respiratory effort, No retractions and No use of accessory muscles AUSCULTATION: rhonchi and wheezes Cardio: COMMON NORMALS: no JVD, regular rate, regular rhythm and No murmurs present (Cardio) RATE: regular rate RHYTHM: regular rhythm GI: COMMON NORMALS: Soft to palpation and No hepatosplenomegaly present AUSCULTATION: Yes normoactive bowel sounds PALPATION: Yes Soft to palpation, No Tenderness to palpation present (GI), No Guarding due to palpation present (GI) and Yes No hepatosplenomegaly present Extremity: COMMON NORMALS: normal to inspection, capillary refill normal, no clubbing, cyanosis or edema, no calf tenderness and no pedal edema Neuro: SENSORIUM/ORIENTATION: Yes oriented to person, Yes oriented to place and Yes oriented to time Skin: COMMON NORMALS: no rashes or lesions noted GENERAL SKIN EXAM: no rashes or lesions noted Course Vital Signs: Vital signs: Vital Signs Temperature 100.8 F H 11/18/20 15:10 Pulse Rate 97 11/18/20 18:56 Respiratory Rate 18 11/18/20 15:10 Blood Pressure 109/61 11/18/20 16:45 Pulse Oximetry 91 11/18/20 18:56 MDM - Fever MDM Narrative: Medical decision making narrative: Reviewed laboratory tests and findings. This point patient can be medically managed as an outpatient. Will start on dexamethasone also set up for home oxygen and home monitoring with the fingers at monitor. Patient vies to return if sats on oxygen consistently falls below 90% Lab Data: Labs: Lab Results 11/18/20 11/18/20 Range/Units 17:54 17:54 WBC 6.3 (4.0-10.0) 10^3/ uL RBC 4.77 (4.1-5.3) 10^6/u L Hgb 13.9 (11.7-16.6) g/dL Hct 40.9 L (42.0-52.0) % MCV 85.7 (80-94) fL MCH 29.1 (28.0-34.0) pg MCHC 34.0 (30.0-36.0) g/dL RDW 13.2 (12.1-15.1) % Plt Count 366 (130-400) 10^3/c mm MPV 9.2 (7.4-10.4) fL Neut % (Auto) 58.5 % Lymph % (Auto) 26.8 % [place] % (Auto) 13.0 % Eos % (Auto) 0.6 % Baso % (Auto) 0.3 % Neut # (Auto) 3.68 (1.8-7.7) 10^3/u L Lymph # (Auto) 1.7 (0.8-4.8) 10^3/u L [place] # (Auto) 0.8 (0.2-0.9) 10^3/u L Eos # (Auto) 0.0 (0.0-0.8) 10^3/u L Baso # (Auto) 0.0 (0.0-0.1) 10^3/u L Nucleated RBC % (a uto) 0 % Nucleated RBCs # 0.0 /100WBC Sodium 135 L (136-145) mmol/L Potassium 3.5 (3.5-5.1) mmol/L Chloride 98 (98-107) mmol/L Carbon Dioxide 25 (22-29) mmol/L Anion Gap 15.5 (5-19) BUN 14 (8-23) mg/dL Creatinine 0.8 (0.7-1.2) mg/dL GFR Calculation 98.6 (90-130) mL/min Glucose 262 H (65-115) mg/dL Calculated Osmolal ity 290 (285-295) mOsm/k g Calcium 8.1 L (8.5-10.5) mg/dL Discharge Plan Discharge Patient Disposition: Home Clinical Impression: COVID-19 Condition: Stable Prescriptions: New dexamethasone 6 mg tablet 6 mg PO DAILY Qty: 7 RF: 0 No Action multivitamin Tablet 1 tab PO DAILY RF: 0 vitamin B complex [B Complex-Vitamin B12] Tablet 1 tab PO DAILY RF: 0 potassium gluconate 595 mg (99 mg) tablet 595 mg PO DAILY RF: 0 lisinopril 10 mg tablet 10 mg PO DAILY 90 Days Qty: 90 RF: 3 amlodipine 5 mg tablet See Rx Instructions .ROUTE .COMPLEX Qty: 90 RF: 3 Lantus U-100 Insulin 100 unit/mL solution 100 unit SUBCUT BID Qty: 70 RF: 4 (DME) insulin syringe-needle U-100 [[facility] Syringes] 1 mL 31 gauge x 5/16 syringe See Rx Instructions .ROUTE .MEDSUPPLY Qty: 100 RF: 5 (DME) nose piece for cpap machine See Rx Instructions .Route .MEDSUPPLY Qty: 1 RF: 0 aspirin [Adult Low Dose Aspirin] 81 mg tablet,delayed release (DR/EC) 81 mg PO DAILY RF: 0 nitroglycerin [Nitrostat] 0.4 mg tablet, sublingual 0.4 mg SUBLINGUAL Q5M PRN (Reason: chest pains) RF: 0 (DME) bipap machine See Rx Instructions .Route .MEDSUPPLY Qty: 1 RF: 0 testosterone cypionate 200 mg/mL kit 200 mg IM .monthly Qty: 1 RF: 2 pyridoxine (vitamin B6) 25 mg tablet 25 mg PO DAILY Qty: 90 RF: 0 tadalafil [Cialis] 20 mg tablet 20 mg PO DAILY PRN (Reason: sexual activity) Qty: 30 RF: 1 fluticasone propionate 50 mcg/actuation spray,suspension 2 spray intranasal DAILY 90 Days Qty: 48 RF: 2 armodafinil [Nuvigil] 250 mg tablet 250 mg PO QAM Qty: 30 RF: 2 hydrocodone-acetaminophen 10-325 mg tablet 1 tab PO Q8H PRN (Reason: pain) 30 Days Qty: 90 RF: 0 cetirizine 10 mg tablet See Rx Instructions .ROUTE .COMPLEX Qty: 30 RF: 5 clopidogrel 75 mg tablet 75 mg PO DAILY Qty: 90 RF: 3 tamsulosin 0.4 mg capsule See Rx Instructions .ROUTE .COMPLEX Qty: 90 RF: 0 Chantix 1 mg tablet 1 mg PO BID Qty: 56 RF: 5 metformin 500 mg tablet 500 mg PO BID Qty: 60 RF: 2 chlorthalidone 25 mg tablet 25 mg PO DAILY Qty: 90 RF: 3 fenofibrate 160 mg tablet See Rx Instructions .ROUTE .COMPLEX Qty: 90 RF: 0 atorvastatin 40 mg tablet See Rx Instructions .ROUTE .COMPLEX Qty: 90 RF: 0 gabapentin 300 mg capsule See Rx Instructions .ROUTE .COMPLEX Qty: 270 RF: 0 Jardiance 25 mg tablet 25 mg PO DAILY Qty: 90 RF: 0 (DME) Blood Glucose Test Strip See Rx Instructions .ROUTE .MEDSUPPLY Qty: 100 RF: 3 azithromycin 500 mg tablet 500 mg PO DAILY 5 Days Qty: 5 RF: 0 promethazine-DM 6.25-15 mg/5 mL syrup 5 ml PO Q6H Qty: 160 RF: 0 albuterol sulfate 90 mcg/actuation HFA aerosol inhaler 2 puff inhalation Q6H PRN (Reason: shortness of breath or wheezing) Qty: 8.5 RF: 1 Discharge Orders: Discharge ED (Routine); Ordered 11/18/20 Ordered By: Shilo Keene Other Ambulatory Orders: DME: Oxygen (Order) Location: None Selected Ordered By: Shilo Keene Referrals: Ada Mueller MD [Primary Care Provider] - Discharge Activity: Limit activity as instructed Patient Instructions: Opioid Safety Activity Restrictions/Additional Instructions: Monitor your oxygen saturation with the fingers at monitor given to you at discharge. If he consistently blows falls below 90% return to the emergency room. You should wear oxygen at 2 L/min by nasal cannula 24 hours a day for the next several weeks. Follow-up with your primary care doctor in 10 to 14 days for reevaluation. Return to the emergency room sooner if you have any further problems. Coding Level of Care Code ED Double End Chucking Machine Operator for [place] Exam Comprehensive
[2020-11-18 18:06] LABS: Basophils % 0.3 %; Eosinophils % 0.6 %; Hematocrit 40.9 % (42.0-52.0); Hemoglobin 13.9 g/dL (11.7-16.6); Lymphocytes # 1.7 10^3/uL (0.8-4.8); Lymphocytes % 26.8 %; Mean Corpuscular Hemoglobin 29.1 pg (28.0-34.0); Mean Corpuscular Volume 85.7 fL (80-94); Mean Platelet Volume 9.2 fL (7.4-10.4); Monocytes # 0.8 10^3/uL (0.2-0.9); Neutrophils # 3.68 10^3/uL (1.8-7.7); Neutrophils % 58.5 %; Nucleated Red Blood Cells % 0 %; Platelet Count 366 10^3/cmm (130-400); Red Blood Count 4.77 10^6/uL (4.1-5.3); Red Cell Distribution Width 13.2 % (12.1-15.1); White Blood Count 6.3 10^3/uL (4.0-10.0)
[2020-11-18 18:28] LABS: Anion Gap 15.5 (5-19); Blood Urea Nitrogen 14 mg/dL (8-23); Calcium 8.1 mg/dL (8.5-10.5); Carbon Dioxide 25 mmol/L (22-29); Chloride 98 mmol/L (98-107); Glomerular Filtration Rate 98.6 mL/min (90-130); Glucose 262 mg/dL (65-115); Osmolality Calculated 290 mOsm/kg (285-295); Potassium 3.5 mmol/L (3.5-5.1); Sodium 135 mmol/L (136-145)
[2020-11-18 18:46] LABS: Slide Review Slide Review Perform
[2020-11-18 18:56] VITALS: PULSE 97; O2SAT 91
== END 2020-11-18 18:56 | disposition home or self-care (01) ==
PROVIDERS: Emergency Provider Family Medicine; PCP Family Medicine
DX: U07.1 COVID-19 (principal); Z79.82 Long term (current) use of aspirin; Z79.02 Long term (current) use of antithrombotics/antiplatelets; Z79.4 Long term (current) use of insulin; I25.10 Atherosclerotic heart disease of native coronary artery without angina pectoris; E11.9 Type 2 diabetes mellitus without complications; E78.5 Hyperlipidemia, unspecified; I10 Essential (primary) hypertension; F17.210 Nicotine dependence, cigarettes, uncomplicated
CPT/HCPCS: 71045; 80048; 85025; 99283

== ENCOUNTER → 2021-01-26 11:30 | Outpatient (BNVA) | payer MEDICARE, SELFPAY | PROVIDERS: PCP Family Medicine; Visit Provider Family Medicine | DX: E11.65 Type 2 diabetes mellitus with hyperglycemia (principal); E29.1 Testicular hypofunction; E78.2 Mixed hyperlipidemia; I10 Essential (primary) hypertension; G47.33 Obstructive sleep apnea (adult) (pediatric) | CPT/HCPCS: 80053; 80061; 83036; 84403; 84443 ==

== ENCOUNTER → 2021-05-09 13:18 | Outpatient (BNVA) | payer MEDICARE, SELFPAY | PROVIDERS: PCP Family Medicine; Visit Provider Family Medicine | DX: E11.65 Type 2 diabetes mellitus with hyperglycemia (principal); E78.2 Mixed hyperlipidemia; G47.33 Obstructive sleep apnea (adult) (pediatric); I10 Essential (primary) hypertension; J30.89 Other allergic rhinitis; H61.21 Impacted cerumen, right ear; R09.81 Nasal congestion | CPT/HCPCS: 80053; 80061; 83036; 84443; 85025 ==

== ENCOUNTER → 2021-08-01 10:51 | Outpatient (BNVA) | payer MEDICARE, SELFPAY | PROVIDERS: PCP Family Medicine; Visit Provider Family Medicine | DX: I10 Essential (primary) hypertension (principal); E78.5 Hyperlipidemia, unspecified; E11.9 Type 2 diabetes mellitus without complications | CPT/HCPCS: 80053; 80061; 83036; 84443; 85025 ==

== ENCOUNTER → 2021-09-04 00:01 | Outpatient (BNVA) | payer MEDICARE, SELFPAY | PROVIDERS: PCP Family Medicine; Visit Provider Family Medicine | DX: E29.1 Testicular hypofunction (principal); R43.8 Other disturbances of smell and taste | CPT/HCPCS: 84403 ==

== ENCOUNTER → 2021-12-26 10:11 | Outpatient (BNVA) | payer MEDICARE, SELFPAY | PROVIDERS: PCP Family Medicine; Visit Provider Family Medicine | DX: E29.1 Testicular hypofunction (principal); E78.2 Mixed hyperlipidemia; I10 Essential (primary) hypertension; E11.65 Type 2 diabetes mellitus with hyperglycemia | CPT/HCPCS: 80053; 80061; 83036; 84403; 84443 ==

== ENCOUNTER → 2022-02-20 09:39 | Outpatient (BNVA) | payer MEDICARE, SELFPAY | PROVIDERS: PCP Family Medicine; Visit Provider Nurse Practitioner Family | DX: M25.522 Pain in left elbow (principal) | CPT/HCPCS: 73080 ==

== ENCOUNTER → 2022-03-19 10:43 | Outpatient (BNVA) | payer MEDICARE, SELFPAY | PROVIDERS: PCP Family Medicine; Visit Provider Internal Medicine Cardiovascular Disease | DX: I25.10 Atherosclerotic heart disease of native coronary artery without angina pectoris (principal); E11.65 Type 2 diabetes mellitus with hyperglycemia; Z79.4 Long term (current) use of insulin; Z79.84 Long term (current) use of oral hypoglycemic drugs; I10 Essential (primary) hypertension; E78.2 Mixed hyperlipidemia; G47.33 Obstructive sleep apnea (adult) (pediatric); F17.210 Nicotine dependence, cigarettes, uncomplicated | CPT/HCPCS: 99214 ==

== ENCOUNTER → 2022-05-02 09:33 | Outpatient (BNVA) | payer MEDICARE, SELFPAY | PROVIDERS: PCP Family Medicine; Visit Provider Family Medicine | DX: E29.1 Testicular hypofunction (principal); E78.5 Hyperlipidemia, unspecified; I10 Essential (primary) hypertension; E11.9 Type 2 diabetes mellitus without complications; E11.65 Type 2 diabetes mellitus with hyperglycemia; I25.10 Atherosclerotic heart disease of native coronary artery without angina pectoris | CPT/HCPCS: 80053; 80061; 83036; 84403; 85025 ==

== ENCOUNTER → 2022-08-27 09:40 | Outpatient (BNVA) | payer MEDICARE, SELFPAY | PROVIDERS: PCP Family Medicine; Visit Provider Family Medicine | DX: E11.65 Type 2 diabetes mellitus with hyperglycemia (principal); E78.2 Mixed hyperlipidemia; I10 Essential (primary) hypertension; K21.9 Gastro-esophageal reflux disease without esophagitis; G56.01 Carpal tunnel syndrome, right upper limb; E11.9 Type 2 diabetes mellitus without complications | CPT/HCPCS: 80053; 80061; 83036; 84443; 85025 ==

== ENCOUNTER → 2022-10-08 10:40 | Outpatient (BNVA) | payer MEDICARE, SELFPAY | PROVIDERS: PCP Family Medicine; Visit Provider Internal Medicine Cardiovascular Disease | DX: I25.10 Atherosclerotic heart disease of native coronary artery without angina pectoris (principal); I10 Essential (primary) hypertension; G47.33 Obstructive sleep apnea (adult) (pediatric); E78.2 Mixed hyperlipidemia; I35.8 Other nonrheumatic aortic valve disorders; F17.210 Nicotine dependence, cigarettes, uncomplicated | CPT/HCPCS: 99214 ==

== ENCOUNTER → 2022-12-11 09:44 | Outpatient (BNVA) | payer MEDICARE, SELFPAY | PROVIDERS: PCP Family Medicine; Visit Provider Family Medicine | DX: E78.5 Hyperlipidemia, unspecified (principal); I10 Essential (primary) hypertension; E11.9 Type 2 diabetes mellitus without complications | CPT/HCPCS: 80053; 80061; 83036; 84443; 85025 ==

== ENCOUNTER → 2023-04-08 10:10 | Outpatient (BNVA) | payer MEDICARE, SELFPAY | PROVIDERS: PCP Family Medicine; Visit Provider Family Medicine | DX: E11.65 Type 2 diabetes mellitus with hyperglycemia (principal); E78.5 Hyperlipidemia, unspecified; I10 Essential (primary) hypertension | CPT/HCPCS: 80053; 80061; 83036; 84443; 85025 ==

== ENCOUNTER → 2023-08-02 12:48 | Outpatient (BNVA) | payer MEDICARE, SELFPAY | PROVIDERS: PCP Family Medicine; Visit Provider Family Medicine | DX: E11.65 Type 2 diabetes mellitus with hyperglycemia (principal); I10 Essential (primary) hypertension; E78.2 Mixed hyperlipidemia; G56.02 Carpal tunnel syndrome, left upper limb; I25.10 Atherosclerotic heart disease of native coronary artery without angina pectoris | CPT/HCPCS: 80053; 80061; 83036; 84443 ==

== ENCOUNTER → 2023-09-20 10:53 | Outpatient (BNVA) | payer MEDICARE, SELFPAY | PROVIDERS: PCP Family Medicine; Visit Provider Internal Medicine Cardiovascular Disease | DX: I25.10 Atherosclerotic heart disease of native coronary artery without angina pectoris (principal); I10 Essential (primary) hypertension; E78.2 Mixed hyperlipidemia; I35.8 Other nonrheumatic aortic valve disorders; G47.33 Obstructive sleep apnea (adult) (pediatric); E11.65 Type 2 diabetes mellitus with hyperglycemia; E29.1 Testicular hypofunction; F17.210 Nicotine dependence, cigarettes, uncomplicated; Z79.4 Long term (current) use of insulin | CPT/HCPCS: 99214 ==

== ENCOUNTER 2023-09-27 06:47 | Outpatient (CLI) | payer MEDICARE, SELFPAY ==
[2023-09-27] VITALS (18 sets, daily range): BP systolic 111–148; BP diastolic 74–98; PULSE 58–81; RESP 0–25; TEMP 36.8; O2SAT 89–99; BMI 33.7
[2023-09-27] MEDS: aspirin 325 mg Tablet PO (07:15)
[2023-09-27] MEDS: diphenhydrAMINE 50 mg Capsule PO (07:15)
[2023-09-27 07:25] LABS: Basophils # 0.1 10^3/uL (0.0-0.1); Eosinophils # 0.4 10^3/uL (0.0-0.8); Lymphocytes # 3.1 10^3/uL (0.8-4.8); Lymphocytes % 32.9 %; Mean Corpuscular HGB Conc 33.4 g/dL (30-55); Mean Corpuscular Hemoglobin 29.3 pg (27-33); Mean Corpuscular Volume 87.6 fl (82-101); Mean Platelet Volume 9.1 fL (7.4-10.4); Monocytes # 0.8 10^3/uL (0.2-0.9); Neutrophils # 5.03 10^3/uL (1.8-7.7); Neutrophils % 52.6 %; Nucleated Red Blood Cells % 0 %; Platelet Count 377 10^3/cmm (157-399); Red Blood Count 5.02 10^6/uL (3.85-5.65); Red Cell Distribution Width 14.3 % (12.1-15.1); White Blood Count 9.55 10^3/uL (3.29-11.43)
[2023-09-27 07:30] LABS: Anion Gap 16.7 (5-19); Blood Urea Nitrogen 17 mg/dL (8-23); Carbon Dioxide 25 mmol/L (22-29); Chloride 103 mmol/L (98-107); Creatinine Clr Calc Pharmacy 132.0574; Glomerular Filtration Rate 113.9 mL/min (90-130); Glucose 86 mg/dL (65-115); Osmolality Calculated 293 mOsm/kg (285-295); Potassium 3.7 mmol/L (3.5-5.1); Sodium 141 mmol/L (136-145)
--- NOTE | 2023-09-27 08:30 | XACV_ITS ---
Exam Room: 2 Ht: 178 cm Wt: 107 kg BSA: 2.33 m2 Gender: Male : 1960 Any Known Allergies: Other Exam Priority: Routine Procedure(s): Procedure Description: Diagnostic procedure Procedure Description: Left Heart Catheterization Procedure Description: Coronary Angiography Procedure Description: Pressure Wire Channing JADE; Diagnostic Cath Status: Elective Diagnostic Findings * The left main is a medium caliber vessel with no significant stenotic lesions. Moderate calcification was noted in the proximal segments of all the 3 coronary arteries. * The left tender descending artery is a medium caliber vessel which appears to wraparound the LV apex minimally. The proximal LAD was found to have diffuse disease of 50 to 60%. The ostium of the LAD was found around 50% stenosis. The artery gives off a high diagonal(intermedius artery) which also was found to have around 50 to 60% proximal lesion. No other significant stenotic lesions. * The left circumflex artery is a medium to large caliber dominant vessel which was found to have proximal stented segment widely open. Just at the distal end of the stent, there was a 40% segmental narrowing. The first obtuse marginal branch coming out of the stented area was found to have a 70 to 80% ostial lesion. It appears to be jailed lesion. The artery is a small to medium caliber vessel. Second obtuse marginal branch is a A large caliber vessel with no significant stenotic lesions. Right after the second obtuse marginal branch, the circumflex proper was found to havetubular narrowing of around 40 to 50%. * The right coronary artery is a small caliber nondominant vessel which appears to be totally occluded after giving of the RV branch. Bridging collaterals were noted filling of the distal segment of the artery. PCI Status: Elective Interventional Findings * PROCEDURE DETAIL: We engaged left main artery with XB 4 guide catheter. IV heparin was administered to maintain anticoagulation. After normalization, IFR wire was advanced into the ramus intermedius artery. iFR value of 0.95 was obtained that was nonsignificant. Medical therapy was decided. We then advanced IFR wire into LAD. iFR value of 0.90 was obtained.On pullback obtained a value of 0.89. Given iFR spot of value of 0.90, we decided to optimize medical therapy. If patient continues having symptoms after that, can consider PCI of proximal LAD. Patient left lab nurse in a stable condition.. Conclusions 1. This is a 63-year-old white male with history of atherosclerotic heart disease, previous PCI of the circumflex artery, history of hypertension, type 2 diabetes, dyslipidemia, obstructive sleep apnea and ongoing smoking abuse presenting with complaints of an abnormal sensation in the chest similar to what he had prior to the previous stent. He did not want to undergo the stress testing. For further evaluation of his coronary status, a cardiac catheterization was recommended. Patient underwent left heart catheterization with a left and right coronary angiogram today. The findings are as follows.. 2. 1. Moderate diffuse calcification of the proximal segments of all the 3 coronary arteries. 2. No significant lesions in the left main. 3. 50 to 60% diffuse disease in the proximal LAD involving the ostium. Around 60% lesion in the ostium of the high diagonal(intermedius artery). 4. Patent proximal stented segment of the large dominant circumflex artery. High-grade lesion in the jailed, small to medium caliber OM1 branch.5. Small nondominant right coronary artery with total occlusion at the mid segment with bridging collaterals.6. Left-ventricular diastolic dysfunction with an LVEDP of 23 mmHg.. 3. I reviewed and discussed the cardiac catheterization data with Dr. Gomez. It was thought to be appropriate to consider IFR of the LAD/intermedius artery lesions. Dr. Gomez took over further management this patient at this point. 4. Non-significant iFR valve of 0.95 in ramus artery. Non significant iFR value of 0.90 in LAD with pull back value of 0.89. We will continue with medical therapy however if continues having symptoms after optimization of medical therapy, will consider PCI of proximal LAD. Recommendations * Aggressive optimal medical therapy. * Outpatient cardiology follow up in 2 weeks. Interventional RX Recommendation: medical therapy and/or counseling Diagnostic RX Recommendation: other cardiac therapy w/o CABG/PCI Anticoagulation: Heparin LV EDP: 23 mmHg Left Ventriculography Findings: * LV gram was not performed because of the concern of the dye overload. LVEDP was 23 mmHg. Pressures Phase:Rest AO : 105 / 81 ( 93 ) @ 9:27:00 AM 101 / 69 ( 85 ) @ 9:45:00 AM 119 / 69 ( 89 ) @ 9:47:00 AM 119 / 69 ( 89 ) @ 9:47:00 AM 116 / 67 ( 86 ) @ 10:07:00 AM 116 / 64 ( 84 ) @ 10:20:00 AM 111 / 65 ( 84 ) @ 10:29:00 AM LV : 125 / 0 / 23 @ 9:46:00 AM 125 / 0 / 22 @ 9:47:00 AM Valves Phase:DefaultPhase AV : 10.0 @ 9:51:28 AM AV Mean Gradient: 9.0 @ 9:51:28 AM 9.0 @ 9:51:28 AM Clinical Evaluation EBL: 5mL-10mL Procedural Details Current Diagnosis : Chest Pain. Pre-Procedure Time Out. Identified patient by full name and date of as verbalized by the patient/guarantor. Does the consent match the physician's order: Yes. Accurate & Complete Informed Consent: Yes. Inpatient/Outpatient History & Physical on Chart: Yes. If H&P is completed, is and addenduem needed: No; If yes, is the addendum complete: N/A. Visualize and Verify Site with Patient/Guarantor: N/A. Relevant Radiology Images available: Yes. Pre-op teaching completed and patient verbalized understanding. The risks, benefits, and alternatives of sedation and/or procedure were discussed by physician. The patient agrees to continue. Procedure started. [facility] Clinical Fraility Score: 3: Managing Well. Adjustment Clerk Indications: Suspected CAD. Chest Pain Symptom Assessment: Atypical Angina. Correct patient, site and procedure confirmed by cath team. Current diagnosis: Chest Pain. PERRLA. Strong, equal hand gas torch brazier bilaterally. Lungs clear x 5 lobes. IV Site on Arrival: 20 gauge in the left anticubital. IV Fluids: 0.9% NaCl at KVO. 0 mL infused prior to lab nurse. Pre Procedural Pulses: bilateral dorsalis pedis was 3+. Pre Procedural Pulses: bilateral posterior tibial was 3+. Pre Procedural Pulses: bilateral radial was 3+. Oxygen started at 2liters/min via nasal canula. right groin was prepped with chloroprep then draped in the usual sterile fashion. right radial was prepped with chloroprep then draped in the usual sterile fashion. Baseline sample Acquired. HR: 73 BPM. Physician arrived. Physician scrubbed in. Immediate Pre-Procedure Time Out. Correct Patient: Yes; Correct Procedure: Yes; Correct Site: Yes; Correct Patient Position: Yes; Correct Supplies: Yes; Dried Flammable Prep: Yes; Blood Products Available: N/A;. Lidocaine 1% infiltrated to the right radial. Arterial access obtained. A 5 guatemalan Michael catheter in over wire. Multiple views taken of left coronary artery. Catheter removed over the exchange wire. A 5 guatemalan TIG catheter in over wire. Multiple views taken of left coronary artery. Catheter removed over the exchange wire. A 5 guatemalan AL1 catheter in over wire. Multiple views taken of left coronary artery. Catheter removed over the exchange wire. A 5 guatemalan JR4 catheter in over wire. Multiple views taken of right coronary artery. Dr. Gomez called to review films. EDP Sample taken: LV 125/0,23; HR: 70 BPM; SpO2: 100%. Pullback taken: LV 125/0,22; AO 119/69(89); Mean: 9mmHg, Peak to Peak: 10mmHg, SEP: 20sec/min; HR: 70 BPM; SpO2: 100%. Catheter removed over the exchange wire. Side port of sheath attached to Normal Saline flush at KVO to maintain patency. Dr. Snell scrubbed out. Dr. Gomez arrived. A TR Band was successful obtaining hemostatsis at the Right Radial artery insertion site. Dr. Gomez scrubbed in to perform intervention. 6 guatemalan XB 3.5 guide catheter was inserted over the wire. Lidocaine 1% infiltrated to the right groin. Arterial access obtained with micropuncture set. 6 guatemalan XB 3.5 guide catheter was inserted over the wire. Guide catheter out. 6 guatemalan XB 4 guide catheter was inserted over the wire. IFR guidewire was advanced through the guide catheter to lesion in the Ramus. IFR Results: 0.95. Wire redirected to the LAD. IFR wire out to reshape the tip. IFR wire inserted and advanced to the LAD. IFR wire out. Guide catheter out. 6 guatemalan JL 4 guide catheter was inserted over the wire. IFR wire inserted and advanced to the LAD. iFR measurement of proximal LAD lesion 0.90 mmHg. iFR wire out. Angiography performed. Guide catheter out. A Suture was successful obtaining hemostatsis at the Right Femoral artery insertion site. Sheath(s) sutured into position with 2-0 silk and sterile 4x4's and Op-site applied over the site. No oozing or signs and symptoms of hematoma noted. Arterial sheath flushed and connected to tranducer and pressure bag with heparinized saline. Post Procedure: Pulses reassessed and unchanged. A 16Fr dawson catheter was inserted without resistance maintaining sterile technique. Bag to gravity with clear urine returning. PERRLA. Strong, equal hand gas torch brazier bilaterally. No VTE prophylaxis required. Post-op diagnosis: Moderate to severe proximal LAD stenosis, medical therapy. Medication's Wasted: Nitro = 49.8 mg. Medication's Wasted: Other = versed 1 mg. Total IV fluids: 330 mL. Complications: None. Estimated blood loss: 5mL-10mL. Responsiveness - Normal response to verbal stimuli; alert and oriented, PERRLA. Airway - Unaffected, no intervention required; spontaneous ventilation. Circulation: W/N/L, pulses unchanged. Nausea/Vomiting: No. Procedure completed. ACT drawn. Results 252 seconds. Therapeutic limits - pre-heparin administration 90-150 seconds and monitoring heparin during a vascular procedure >250 seconds. Patient transferred by bed to CPRU. Vital chart was stopped. Access Site Site: Right Radial artery Sheath Size: 6 Fr Hemostasis Method: TR Band Hemostasis Success: Successful Site: Right Femoral artery Sheath Size: 6 Fr Hemostasis Method: Suture Hemostasis Success: Successful Procedure Medications Start: 8:16 AM Stop: 8:16 AM Medication: Versed Amount: 1 mg Route: I.V. Start: 8:19 AM Stop: 8:19 AM Medication: Fentanyl Amount: 25 mcg Route: I.V. Start: 8:21 AM Stop: 8: AM Medication: Versed Amount: 1 mg Route: I.V. Start: 8:22 AM Stop: 8: AM Medication: Verapamil Amount: 5 mg Route: I.A. Start: 8:22 AM Stop: 8: AM Medication: Nitrogylcerin Amount: 200 mcg Route: I.A. Start: 8:26 AM Stop: 8:26 AM Medication: Heparin Amount: 5000 units Route: I.V. Start: 8:53 AM Stop: 8:53 AM Medication: Fentanyl Amount: 25 mcg Route: I.V. Start: 8:59 AM Stop: 8:59 AM Medication: Fentanyl Amount: 25 mcg Route: I.V. Start: 9:03 AM Stop: 9:03 AM Medication: Heparin Amount: 4000 units Route: I.V. Start: 9:07 AM Stop: 9:07 AM Medication: Versed Amount: 1 mg Route: I.V. Start: 9:11 AM Stop: 9:11 AM Medication: Fentanyl Amount: 25 mcg Route: I.V. Start: 9:15 AM Stop: 9:15 AM Medication: Heparin Amount: 1000 units Route: I.V. I, the attending physician, have reviewed and verified all procedure medications. Yes, all medications given per verbal order History/Risk Factors Hypertension: Yes Dyslipidemia: No Peripheral Arterial Disease (PAD): No Myocardial Infarction (CT): No Obesity: No Renal Disease: No Tobacco Use: Current/Recent(w/in 1 year) Prior Interventions PCI: Yes CABG: No Valve Surgery: No Date of PCI: 05/16/2015 Report Signatures Interventional Workflow Finalized by Eusebio Gomez MD on 10/05/2023 11:37 AM Diagnostic Workflow Finalized by Dr Giuliana Snell MD [facility] on 09/27/2023 08:09 PM
--- NOTE | 2023-09-27 09:01 | W.PM.OPSUD ---
Surgery/Procedure H&P Update DATE OF PROCEDURE: September 27, 2023 DATE H&P PERFORMED: 09/20/23 H&P UPDATE INFORMATION: I have reviewed H&P completed within last 30 days, I have examined patient prior to procedure and No changes to prior documentation PREOP DIAGNOSIS: ASHD PRIMARY INDICATION FOR PROCEDURE: Chest pain/ pevious PCI PLANNED PROCEDURE: Operation Date: 09/27/23 09:00 Proposed Procedures p Cardiac Catheterization 26277,I25.10(Left) - Giuliana Snell MD PATIENT REASSESSED PRIOR TO SEDATION, WITH NO CHANGE NOTED: Yes PHYSICAL EXAM: alert, oriented x 3, clear to auscultation bilaterally and regular rate & rhythm AIRWAY EVAL/ANESTHESIA PLAN: normal airway, see other exam findings, ASA III, Local Anesthesia, Risks, benefits & alternatives of sedation and/or procedure discussed and Patient agrees to continue as planned
[2023-09-27 12:24] LABS: Partial Thromboplastin Time 45.3 SECONDS (23.9-36.7)
[2023-09-27] MEDS: tamsulosin 0.4 mg Capsule 0.400000000000000022 MG PO (13:14)
[2023-09-27] MEDS: HYDROcodone-acetaminophen 10-325 mg Tablet 1 TAB PO ×2 (13:14→20:59)
--- NOTE | 2023-09-27 13:45 | PC.NURSE ---
1340 sheath removed on right groin explained procedure to pt. 6 fr sheath removed on right femoral artery. no hematoma,bleeding or swelling noted. manual pressure held for 20 mins. activity restrictions discuss to pt and bedrest for 6 hrs. pt verbalizes understanding. call light provided.
[2023-09-27 16:52] LABS: Glucose Point of Care 116 mg/dL (70-110)
[2023-09-27 21:14] LABS: Glucose Point of Care 178 mg/dL (70-110)
[2023-09-28] VITALS: BP 121/75; PULSE 70; RESP 18; O2SAT 95
[2023-09-28 00:14] VITALS: BP 121/75; PULSE 67; RESP 15; TEMP 36.9; O2SAT 95
[2023-09-28 04:00] VITALS: BP 125/87; PULSE 77; RESP 15; TEMP 36.6; O2SAT 97
[2023-09-28] MEDS: HYDROcodone-acetaminophen 10-325 mg Tablet 1 TAB PO (04:22)
[2023-09-28 06:00] VITALS: PULSE 71
[2023-09-28 06:24] LABS: Glucose Point of Care 152 mg/dL (70-110)
[2023-09-28 07:30] VITALS: BP 122/74; PULSE 78; RESP 18; TEMP 36.4; O2SAT 97
--- NOTE | 2023-09-28 08:47 | P.DS_ITS ---
Discharge Providers Date of Admission: September 27, 2023 Date of Discharge: September 28, 2023 Attending Provider at Admission: Dr Snell Attending Provider at Discharge: Eusebio Gomez MD Primary Care Provider: Ada Mueller MD Reason for Visit Reason for Visit: I25.10 Brief History: 63-year-old man with CAD history who was admitted for outpatient cardiac catheterization secondary to chest discomfort episodes. Hospital Course Hospital Course Heart cath revealed moderate ramus and LAD stenosis. iFR was performed for both and did not reveal ischemic values. Medical therapy was decided. He was observed overnight and was discharged home in a stable condition on medical therapy. Physical Exam Narrative: GENERAL: Patient is alert, awake and oriented x3. [] NECK: No jugular vein distension. [] HEENT: No cyanosis. No icterus. No pallor. [] HEART: Regular S1 and S2. No murmur, rub or gallop. [] LUNGS: Clear to auscultate bilaterally. [] CENTRAL NERVOUS SYSTEM: Grossly nonfocal. [] EXTREMITIES: Lower extremities with 1+ edema bilaterally. Discharge Data Studies Completed and Pending Pending at discharge Category Date Time Status ASSISTANT ACCOUNT MANAGER request for service Routine Exams 09/27/23 08:30 Taken Laboratory Results WBC 9.55 10^3/uL (3.29-11.43) 09/27/23 07:10 RBC 5.02 10^6/uL (3.85-5.65) 09/27/23 07:10 Hgb 14.70 g/dL (11.27-16.99) 09/27/23 07:10 Hct 44.0 % (37-53) 09/27/23 07:10 MCV 87.6 fl (82-101) 09/27/23 07:10 MCH 29.3 pg (27-33) 09/27/23 07:10 MCHC 33.4 g/dL (30-55) 09/27/23 07:10 RDW 14.3 % (12.1-15.1) 09/27/23 07:10 Plt Count 377 10^3/cmm (157-399) 09/27/23 07:10 MPV 9.1 fL (7.4-10.4) 09/27/23 07:10 Neut % (Auto) 52.6 % 09/27/23 07:10 Lymph % (Auto) 32.9 % 09/27/23 07:10 [place] % (Auto) 8.0 % 09/27/23 07:10 Eos % (Auto) 4.0 % 09/27/23 07:10 Baso % (Auto) 1.0 % 09/27/23 07:10 Neut # (Auto) 5.03 10^3/uL (1.8-7.7) 09/27/23 07:10 Lymph # (Auto) 3.1 10^3/uL (0.8-4.8) 09/27/23 07:10 [place] # (Auto) 0.8 10^3/uL (0.2-0.9) 09/27/23 07:10 Eos # (Auto) 0.4 10^3/uL (0.0-0.8) 09/27/23 07:10 Baso # (Auto) 0.1 10^3/uL (0.0-0.1) 09/27/23 07:10 Nucleated RBC % (auto) 0 % 09/27/23 07:10 Nucleated RBCs # 0.0 /100WBC 09/27/23 07:10 APTT 45.3 SECONDS (23.9-36.7) H 09/27/23 11:48 Sodium 141 mmol/L (136-145) 09/27/23 07:10 Potassium 3.7 mmol/L (3.5-5.1) 09/27/23 07:10 Chloride 103 mmol/L (98-107) 09/27/23 07:10 Carbon Dioxide 25 mmol/L (22-29) 09/27/23 07:10 Anion Gap 16.7 (5-19) 09/27/23 07:10 BUN 17 mg/dL (8-23) 09/27/23 07:10 Creatinine 0.7 mg/dL (0.7-1.2) 09/27/23 07:10 GFR Calculation 113.9 mL/min (90-130) 09/27/23 07:10 Glucose 86 mg/dL (65-115) 09/27/23 07:10 POC Glucose 152 mg/dL (70-110) H 09/28/23 06:10 Calculated Osmolality 293 mOsm/kg (285-295) 09/27/23 07:10 Calcium 9.0 mg/dL (8.5-10.5) 09/27/23 07:10 Vitals Last Vital Signs Temp 97.6 F 09/28/23 07:30 Pulse 78 09/28/23 07:30 Resp 18 09/28/23 07:30 BP 122/74 09/28/23 07:30 Pulse Ox 97 09/28/23 07:30 O2 Del Method Room Air 09/28/23 07:30 Discharge Plan Discharge Patient Disposition: Home Prescriptions: New isosorbide mononitrate 30 mg tablet extended release 24 hr 30 mg PO DAILY Qty: 30 3RF Continued multivitamin Tablet 1 tab PO DAILY vitamin B complex [B Complex-Vitamin B12] Tablet 1 tab PO DAILY (DME) nose piece for cpap machine See Rx Instructions .Route .MEDSUPPLY Qty: 1 0RF Rx Instructions: As directed aspirin [Adult Low Dose Aspirin] 81 mg tablet,delayed release (DR/EC) 81 mg PO DAILY (DME) bipap machine See Rx Instructions .Route .MEDSUPPLY Qty: 1 0RF Rx Instructions: Decrease bipap to 8 pounds of pressure and slowly titrate up. pyridoxine (vitamin B6) 25 mg tablet 25 mg PO DAILY Qty: 90 0RF (DME) DISCONTINUE OXYGEN See Rx Instructions .Route .MEDSUPPLY Qty: 1 0RF Rx Instructions: DC OXYGEN, PT NO LONGER NEEDS USED DURING COVID TREATMENT (DME) cpap supplies including headset, tubing, and mask, filters, cushion See Rx Instructions .Route .MEDSUPPLY Qty: 1 0RF Rx Instructions: As directed amlodipine 5 mg tablet See Rx Instructions .ROUTE .COMPLEX Qty: 90 3RF Dose Instruction: TAKE 1 TABLET BY MOUTH EVERY DAY Rx Instructions: TAKE 1 TABLET BY MOUTH EVERY DAY celecoxib [Celebrex] 200 mg capsule 200 mg PO BID Qty: 30 3RF chlorthalidone 25 mg tablet 25 mg PO DAILY Qty: 90 3RF clopidogrel 75 mg tablet 75 mg PO DAILY Qty: 90 3RF fluticasone propionate 50 mcg/actuation spray,suspension 2 spray intranasal DAILY 90 Days Qty: 48 2RF fexofenadine-pseudoephedrine [Sarah-D 12 Hour] 60-120 mg tablet extended release 12 hr 1 tab PO Q12H PRN (Reason: allergy symptoms) Qty: 30 1RF armodafinil 250 mg tablet 250 mg PO QAM Qty: 30 0RF (DME) Nose mask for sleep apnea See Rx Instructions .Route .MEDSUPPLY Qty: 1 0RF Rx Instructions: As directed atorvastatin 40 mg tablet See Rx Instructions .ROUTE .COMPLEX Qty: 90 1RF Dose Instruction: TAKE ONE TABLET BY MOUTH DAILY Rx Instructions: TAKE ONE TABLET BY MOUTH DAILY fenofibrate 160 mg tablet See Rx Instructions .ROUTE .COMPLEX Qty: 90 3RF Dose Instruction: TAKE ONE TABLET BY MOUTH DAILY Rx Instructions: TAKE ONE TABLET BY MOUTH DAILY esomeprazole magnesium [Nexium] 40 mg capsule,delayed release(DR/EC) 40 mg PO DAILY Qty: 30 3RF Jardiance 25 mg tablet See Rx Instructions .ROUTE .COMPLEX Qty: 30 3RF Dose Instruction: TAKE ONE TABLET BY MOUTH EVERY DAY Rx Instructions: TAKE ONE TABLET BY MOUTH EVERY DAY gabapentin 300 mg capsule See Rx Instructions .ROUTE .COMPLEX Qty: 270 1RF Dose Instruction: TAKE 1 CAPSULE BY MOUTH THREE TIMES DAILY Rx Instructions: TAKE 1 CAPSULE BY MOUTH THREE TIMES DAILY glipizide 5 mg tablet 5 mg PO DAILY Qty: 30 3RF Lantus U-100 Insulin 100 unit/mL solution See Rx Instructions .ROUTE .COMPLEX Qty: 70 3RF Dose Instruction: inject 100 units SUBCUTANEOUSLY TWICE DAILY Rx Instructions: inject 100 units SUBCUTANEOUSLY TWICE DAILY (DME) insulin syringe-needle U-100 [BD Insulin Syringe Ultra-Fine] 1 mL 31 gauge x 5/16 syringe See Rx Instructions .ROUTE .COMPLEX Qty: 100 3RF Dose Instruction: USE TWICE DAILY with lantus Rx Instructions: USE TWICE DAILY with lantus lisinopril 10 mg tablet 10 mg PO DAILY 90 Days Qty: 90 3RF tamsulosin 0.4 mg capsule See Rx Instructions .ROUTE .COMPLEX Qty: 90 3RF Dose Instruction: TAKE 1 CAPSULE BY MOUTH EVERY DAY Rx Instructions: TAKE 1 CAPSULE BY MOUTH EVERY DAY nitroglycerin [Nitrostat] 0.4 mg tablet, sublingual 0.4 mg SUBLINGUAL Q5M PRN (Reason: chest pains) Qty: 30 3RF hydrocodone-acetaminophen 10-325 mg tablet 1 tab PO Q8H PRN (Reason: pain) 30 Days Qty: 90 0RF (DME) pen needle, diabetic [Pen Needle] 30 gauge x 5/16 needle See Rx Instructions .Route Qty: 50 0RF Rx Instructions: weekly albuterol sulfate 90 mcg/actuation HFA aerosol inhaler 2 puff inhalation Q6H PRN (Reason: shortness of breath or wheezing) Qty: 8.5 1RF cyclosporine [Restasis] 0.05 % dropperette 1 drp ophthalmic (eye) Q12H Qty: 60 3RF (DME) OneTouch Ultra Test Strip See Rx Instructions .ROUTE .COMPLEX Qty: 100 5RF Dose Instruction: USE TO test blood sugar THREE TIMES DAILY Rx Instructions: USE TO test blood sugar THREE TIMES DAILY (DME) Accu-Chek Guide test strips Strip See Rx Instructions .Route Qty: 50 0RF Rx Instructions: CHECK WITH MEALS Held metformin 500 mg tablet extended release 24 hr See Rx Instructions .ROUTE .COMPLEX Qty: 180 1RF Hold Instructions: Resume on 09/30/23. Dose Instruction: TAKE ONE TABLET BY MOUTH TWICE DAILY Rx Instructions: TAKE ONE TABLET BY MOUTH TWICE DAILY No Action promethazine-DM 6.25-15 mg/5 mL syrup 5 ml PO Q6H PRN (Reason: cough) Qty: 160 0RF amoxicillin-pot clavulanate 875-125 mg tablet 1 tab PO BID Qty: 20 0RF Discharge Orders: Discharge Order (Routine); Ordered 09/27/23 Ordered By: Giuliana Snell Referrals: mEma Sales FNP [Nurse Practitioner] - 10/09/23 2:30 pm Ada Mueller MD [Primary Care Provider] - 10/02/23 9:20 am Diet: Advance as tolerated Activity: Limit activity as instructed Patient Instructions: Isosorbide Mononitrate (By mouth) (Imdur, Imdur ER, Ismo), Post Angiogram Home Care Instructions Activity Restrictions/Additional Instructions: Avoid any weight lifting or climbing stairs for the next 5 days Appointment the [facility] to be seen by the nurse practitioner in 1 month Appoint with me in the office as scheduled Discharge Date/Time: 09/28/23 09:26 Discharge Attestations Time Spent in Discharge Care*: less than 30 min Quality Metrics Clinical Quality Measures [ No reported AMI, CVA or VTE this stay] Coding Level of Care Code Acute Code for Chg Fwd
--- NOTE | 2023-09-28 09:27 | PC.NURSE ---
per dr servin to follow up in a month w/nurse practitioner.
== END 2023-09-28 09:26 | disposition home or self-care (01) ==
LOC: CCL 06:47 → CSU 10:47
PROVIDERS: Internal Medicine; PCP Family Medicine; Visit Provider Internal Medicine Cardiovascular Disease
DX: I25.110 Atherosclerotic heart disease of native coronary artery with unstable angina pectoris (principal); Z79.01 Long term (current) use of anticoagulants; I10 Essential (primary) hypertension; Z79.84 Long term (current) use of oral hypoglycemic drugs; Z79.82 Long term (current) use of aspirin; G47.33 Obstructive sleep apnea (adult) (pediatric); E78.2 Mixed hyperlipidemia; E11.65 Type 2 diabetes mellitus with hyperglycemia; E29.1 Testicular hypofunction
CPT/HCPCS: 36415; 36416; 80048; 82962; 85025; 85730; 93458; 93571; 93572; 96374; 96375; 99152; 99153; C1769; C1887; C1894; J1644; J2250; J3010; J3490; J7030; Q0163; Q9967

== ENCOUNTER → 2023-10-09 13:59 | Outpatient (BNVA) | payer MEDICARE, SELFPAY | PROVIDERS: PCP Family Medicine; Visit Provider Nurse Practitioner Family | DX: I25.10 Atherosclerotic heart disease of native coronary artery without angina pectoris (principal); F17.210 Nicotine dependence, cigarettes, uncomplicated; I10 Essential (primary) hypertension | CPT/HCPCS: 36415; 80048; 99214 ==

== ENCOUNTER → 2024-01-16 11:37 | Outpatient (BNVA) | payer MEDICARE, SELFPAY | PROVIDERS: PCP Family Medicine; Visit Provider Family Medicine | DX: Z12.5 Encounter for screening for malignant neoplasm of prostate (principal); I10 Essential (primary) hypertension; E11.65 Type 2 diabetes mellitus with hyperglycemia; I25.10 Atherosclerotic heart disease of native coronary artery without angina pectoris; R09.89 Other specified symptoms and signs involving the circulatory and respiratory systems | CPT/HCPCS: 80053; 80061; 83036; 84443; 85025; G0103 ==

== ENCOUNTER → 2024-03-05 12:23 | Outpatient (BNVA) | payer MEDICARE, SELFPAY | PROVIDERS: PCP Family Medicine; Visit Provider Internal Medicine Cardiovascular Disease | DX: R06.02 Shortness of breath (principal) | CPT/HCPCS: 80048; 99214 ==

== ENCOUNTER 2024-08-18 09:52 | Outpatient (CLI) | payer MEDICARE, SELFPAY ==
--- NOTE | 2024-08-18 09:56 | XR_ITS ---
WS: [id number] Exam: XR hand RT min 3V* [id number] Date/Time of Exam: 08/18/2024 9:56 AM Reason For Exam: chronic pain R hand No acute fracture. Degenerative changes in the IP joints. No soft tissue foreign body is noted. Vascular calcifications in the volar soft tissues. XR/XR hand RT min 3V* [id number] IMPRESSION: 1. Degenerative change. No fracture or other significant finding.
== END 2024-08-18 09:53 | disposition home or self-care (01) ==
PROVIDERS: PCP Family Medicine; Visit Provider Family Medicine
DX: M19.041 Primary osteoarthritis, right hand (principal); G89.29 Other chronic pain; R93.6 Abnormal findings on diagnostic imaging of limbs; E11.65 Type 2 diabetes mellitus with hyperglycemia; I10 Essential (primary) hypertension; E78.2 Mixed hyperlipidemia; K21.9 Gastro-esophageal reflux disease without esophagitis
CPT/HCPCS: 73130; 82043; 82607; 83036

== ENCOUNTER → 2024-09-02 07:54 | Outpatient (BNVA) | payer MEDICARE, SELFPAY | PROVIDERS: PCP Family Medicine; Visit Provider Student in an Organized Health Care Education/Training Program | DX: M79.641 Pain in right hand (principal); G89.29 Other chronic pain; R20.0 Anesthesia of skin; R20.2 Paresthesia of skin | CPT/HCPCS: 99203 ==

== ENCOUNTER → 2024-09-28 10:57 | Outpatient (BNVA) | payer MEDICARE, SELFPAY | PROVIDERS: PCP Family Medicine; Visit Provider Internal Medicine Cardiovascular Disease | DX: I10 Essential (primary) hypertension (principal); I25.10 Atherosclerotic heart disease of native coronary artery without angina pectoris; E78.2 Mixed hyperlipidemia; E11.65 Type 2 diabetes mellitus with hyperglycemia; Z79.4 Long term (current) use of insulin; Z79.84 Long term (current) use of oral hypoglycemic drugs; Z79.01 Long term (current) use of anticoagulants; Z79.82 Long term (current) use of aspirin; Z95.5 Presence of coronary angioplasty implant and graft; F17.210 Nicotine dependence, cigarettes, uncomplicated | CPT/HCPCS: 99214 ==

== ENCOUNTER → 2024-10-13 08:06 | Outpatient (BNVA) | payer MEDICARE, SELFPAY | PROVIDERS: PCP Family Medicine; Referring Provider Student in an Organized Health Care Education/Training Program; Visit Provider Specialist | DX: R20.0 Anesthesia of skin (principal); R20.2 Paresthesia of skin | CPT/HCPCS: 95911 ==

== ENCOUNTER → 2024-11-11 09:02 | Outpatient (BNVA) | payer MEDICARE, SELFPAY | PROVIDERS: PCP Family Medicine; Visit Provider Physician Assistant | DX: G56.03 Carpal tunnel syndrome, bilateral upper limbs (principal); M65.321 Trigger finger, right index finger | CPT/HCPCS: 73130; 99204 ==

== ENCOUNTER 2024-12-03 06:59 | Day surgery (SDC) | payer MEDICARE, SELFPAY ==
[2024-12-03 07:22] VITALS: BMI 34.4
--- NOTE | 2024-12-03 07:24 | P.HPUD_ITS ---
Surgery/Procedure H&P Update DATE OF PROCEDURE: December 03, 2024 DATE H&P PERFORMED: 11/11/24 H&P UPDATE INFORMATION: I have reviewed H&P completed within last 30 days, I have examined patient prior to procedure and No changes to prior documentation CHANGES TO PREVIOUS DOCUMENTATION: Patient on examination does have severe right index finger A1 td tenderness with decreased range of motion consistent with right index finger trigger. At this point in time she is consented for right carpal tunnel release and right index finger trigger release. Patient understands the ins and outs procedure risk benefits complication alternatives of surgery and through shared decision- making patient elects proceed with surgical invention. All questions answered at this time. PREOP DIAGNOSIS: Right carpal tunnel syndrome, right index finger trigger PRIMARY INDICATION FOR PROCEDURE: Right carpal tunnel syndrome, right index finger trigger PLANNED PROCEDURE: Operation Date: 12/03/24 08:25 Proposed Procedures p RIGHT Carpal Tunnel Release(Right) - Tyler Greenwood DO s RIGHT Index Trigger Finger Release(Right) - Tyler Greenwood DO
[2024-12-03] MEDS: acetaminophen 1,000 MG/100 ML PIGGYBACK 400 MG IV (07:39)
--- NOTE | 2024-12-03 07:40 | ANES.PREANE2 ---
Pre-Anesthetic Assessment Height/Weight: Height 1.78 m Weight 108.862 kg O2 Del Method Room Air 12/03/24 07:22 Preop Diagnosis: Right carpal tunnel syndrome, right index finger trigger Operation Date: 12/03/24 08:25 Proposed Procedures p RIGHT Carpal Tunnel Release(Right) - Tyler Krystyna, DO s RIGHT Index Trigger Finger Release(Right) - Tyler Krystyna, DO Familial anesthetic complications: None Was Beta Laurence taken within 24 hours: N/A Was Clonidine taken within 24 hours: N/A Last intake: Intake Last Liquid Date 12/02/24 Last Liquid Time 23:30 Last Solid Date 12/02/24 Last Solid Time 23:30 Social Tobacco and No alcohol Airway Mallampati: Class II Dentition: chipped Pulmonary Asthma and Sleep Apnea CV/HEM Coronary Artery Disease (stents) and Hypertension Metabolic Diabetes Mellitus, Hyperlipidemia and Morbid Obesity Anesthetic Plan ASA status: 4 Anesthesia: MAC Risk of > 500 ml blood loss (7ml/kg in children): No Medications/Allergies Home Medications ?Medication ?Instructions ?Recorded ?Confirmed ?Last Taken ?Type aspirin 81 mg tablet,delayed 81 mg PO DAILY 07/27/19 12/02/24 12/01/24 History release (Adult Low Dose Aspirin) nose piece for cpap machine #1 ea 08/25/20 11/12/24 Unknown Rx vitamin B complex (B 1 tab PO DAILY 09/07/20 12/02/24 12/02/24 History Complex-Vitamin B12 tablet) DISCONTINUE OXYGEN #1 ea 01/26/21 11/12/24 Unknown Rx cpap supplies including headset, #1 ea 09/13/21 11/12/24 Unknown Rx tubing, and mask, filters, cushion pen needle, diabetic 30 gauge x #50 ea 01/03/22 11/12/24 Unknown Rx 5/16 (Pen Needle) Nose mask for sleep apnea #1 ea 01/29/23 11/12/24 Unknown Rx insulin syringe-needle U-100 1 mL #100 ea 08/02/23 11/12/24 Unknown Rx 31 gauge x 5/16 (BD Insulin Syringe Ultra-Fine) nitroglycerin 0.4 mg sublingual 0.4 mg sublingual Q5M PRN chest 08/02/23 11/12/24 Unknown Rx tablet (Nitrostat) pains #30 tabs blood sugar diagnostic (OneTouch #100 strips 08/26/23 11/12/24 Unknown Rx Ultra Test strips) blood sugar diagnostic (Accu-Chek #50 ea 08/27/23 11/12/24 Unknown Rx Guide test strips) armodafinil 250 mg tablet 250 mg PO QAM #30 tabs 01/16/24 12/02/24 12/02/24 Rx albuterol sulfate 90 mcg/actuation 2 puff inhalation Q6H PRN 02/17/24 12/02/24 12/01/24 Rx aerosol inhaler shortness of breath or wheezing #8.5 grams celecoxib 200 mg capsule (Celebrex) 200 mg PO BID #180 caps 02/17/24 12/02/24 11/25/24 Rx chlorthalidone 25 mg tablet 25 mg PO DAILY #90 tabs 02/17/24 12/02/24 12/02/24 Rx clopidogrel 75 mg tablet 75 mg PO DAILY #90 tabs 02/17/24 12/02/24 11/25/24 Rx esomeprazole magnesium 40 mg 40 mg PO DAILY #90 caps 02/17/24 12/02/24 12/02/24 Rx capsule,delayed release (Nexium) glipizide 10 mg tablet 10 mg PO DAILY #90 tabs 02/17/24 12/02/24 12/02/24 Rx lisinopril 10 mg tablet 10 mg PO DAILY 90 days #90 tabs 02/17/24 12/03/24 12/03/24 Rx pyridoxine (vitamin B6) 25 mg 25 mg PO DAILY #90 tabs 02/17/24 12/02/24 12/02/24 Rx tablet amlodipine 2.5 mg tablet 2.5 mg PO DAILY HTN 30 days #30 08/07/24 12/03/24 12/03/24 Rx tabs cyclosporine 0.05 % eye drops in a 1 drp ophthalmic (eye) Q12H #60 ea 08/20/24 12/02/24 12/02/24 Rx dropperette (Restasis) hydrocodone 10 mg-acetaminophen 1 tab PO Q4-5H 09/02/24 12/02/24 12/02/24 History 750 mg tablet CPAP tubing,mask and supplies #1 ea 10/02/24 11/12/24 Unknown Rx triamcinolone acetonide 0.1 % 1 applic topical BID #30 grams 11/12/24 12/02/24 Unknown Rx topical ointment fluticasone propionate 50 2 spray intranasal DAILY 90 days 11/13/24 12/02/24 12/02/24 Rx mcg/actuation nasal #48 grams spray,suspension atorvastatin 40 mg tablet 40 mg PO DAILY 12/02/24 12/02/24 12/02/24 History fenofibrate 160 mg tablet 160 mg PO DAILY 12/02/24 12/02/24 12/02/24 History gabapentin 300 mg capsule 300 mg PO TID 12/02/24 12/02/24 12/02/24 History isosorbide mononitrate 30 mg 30 mg PO DAILY 12/02/24 12/02/24 12/02/24 History tablet,extended release 24 hr metformin 500 mg tablet,extended 500 mg PO BID 12/02/24 12/02/24 12/02/24 History release 24 hr tamsulosin 0.4 mg capsule 0.4 mg PO DAILY 12/02/24 12/02/24 12/02/24 History Allergies Allergy/AdvReac Type Severity Reaction Status Date / Time levofloxacin (From Levaquin) Allergy Intermediate lips and Verified 11/12/24 08:14 face swelled PENDING SALE TO [facility] Anesthesia Medical History (Updated 11/12/24 @ 09:13 by Nicole Scanlon MD) Nicotine dependence, cigarettes, with other nicotine-induced disorders qualifies for LDCT--he declines this 3.25.25 Obstructive sleep apnea of adult has CPAP; takes Rx stimulant if driving Chronic pain of right hand Dr. Mueller has done injections in past Atherosclerotic heart disease of [place] coronary artery without angina pectoris Chronic pain goes to pain clinic for hydrocodone Lumbar spondylosis Hyperlipidemia Hypertension Diabetes CAD (coronary artery disease) Surgical History Hx of cardiac cath one stent in past Hx of colonoscopy 5.4.16 normal; 4.28.22 --polyp removed but path shows normal mucosa History of surgery on arm Left forearm after injury History of kidney surgery R side--had stent R ureter--not a stone, for hydronephrosis History of ankle surgery left Hx of eye surgery had metal removed from eyes History of tonsillectomy and adenoidectomy Hx of sinus surgery History of carpal tunnel surgery of left wrist Family History Mother CAD (coronary artery disease) Diabetes Lung disease Father CAD (coronary artery disease) Diabetes Stroke Sister CAD (coronary artery disease) Diabetes Brother Cancer throat cancer--smoker Diabetes Lung disease Denies family history of Clotting disorder Dementia Chronic kidney disease (CKD) Suicide Anesthesia complication Bleeding disorder Social History Smoking and tobacco/nicotine status: current every day tobacco/nicotine user cigarettes Packs smoked per day: 0.5 Years cigarettes smoked: 30 [ Other cigarette details: started age 12, quit 10yrs; avg 42pk yr hx ] Alcohol intake: former Former alcohol use details: sober x 15 yrs Substance/Drug Use: never Adopted: No Caregiver/support person: Yes Lives independently: Yes Household members: other Details: brother Housing: House Marital status: Number of children: 0 Highest education level completed: High School Graduate service: No Current occupational status: retired and disabled Current occupational exposures/hazards: No Previous occupational history: road oiling truck driver; Pets and animals: No Leisure activites: exercise Sexually active: No Do you think of yourself as: Straight/Heterosexual Current gender identity: Male Special julia needs: No Agree to transfusion: Yes
[2024-12-03] MEDS: ceFAZolin 2,000 MG in sodium chloride 0.9% (plus) 50 ML 100 MG IV (08:08)
[2024-12-03] MEDS: lidocaine-epi 1% 20 mL INJ INJECTION (08:55)
[2024-12-03] MEDS: ROPivacaine 0.5% SDV 30 mL 150 MG INJECTION (08:55)
[2024-12-03 09:02] VITALS: BP 80/66; PULSE 81; RESP 16; TEMP 36.3; O2SAT 94
--- NOTE | 2024-12-03 09:06 | P.BOP_ITS ---
Date of Procedure: 12/03/2024 Surgeon: Tyler Greenwood DO Travel Nurse(s): Christian Greenwood PA-C Procedure(s) performed: Right carpal tunnel release Right index finger trigger release Findings of the procedure(s): Procedure went as planned without issues or complications. Estimated blood loss: 5 mL Specimen(s) removed: None Post-operative diagnosis: Right carpal tunnel syndrome, right index finger trig ayesha
--- NOTE | 2024-12-03 09:06 | PM.PACU ---
PACU note Narrative: Patient is a 64-year-old male that just underwent a Right carpal tunnel release and Right index finger trigger release. Patient transferred to PACU in stable condition. Pain is well controlled. Dressing on hand is dry and in place. Patient's fingers are warm and well-perfused. Patient can wiggle fingers. normal cap refill under 2 seconds. Patient has normal elbow range of motion. Unable to assess sensation to hand due to residual localized anesthetic. Exam: awake Disposition: discharged
[2024-12-03 09:07] VITALS: BP 87/70; PULSE 76; RESP 16; O2SAT 92
--- NOTE | 2024-12-03 09:07 | PM.OP ---
Operative Report Date of procedure: December 03, 2024 Surgeon: Tyler Greenwood DO Procedure: Preop Diagnosis: Right Carpal Tunnel Syndrome Right index finger trigger Post-op diagnosis: Same Procedure done: 1. Right carpal tunnel release 2. Right index finger trigger release Surgeon: Tyler Greenwood DO Anesthesia: MAC (Local) Estimated blood loss: [5]mL Tourniquet time [17]minutes IV fluids: See anesthesia record Complications: None Findings: See operative report narrative Condition: stable Disposition: same day Brief History: Patient is a pleasant [64]year-old [male] with right carpal tunnel syndrome and right index finger trigger. Patient has been worked up in the outpatient setting findings and physical examination consistent with this. Patient nerve conduction studies consistent with carpal tunnel syndrome. We detailed out patient's risk benefits complication alternatives with surgical and nonsurgical treatment options. Through shared decision making, patient agrees to proceed with surgical intervention of the right carpal tunnel release and right index finger trigger release. Patient understands and agrees with current plan. All questions answered. Patient elects to proceed with surgical intervention Procedure: Patient seen and evaluated in the preoperative holding area. Consent was reviewed and signed with patient. Correct extremity was marked. Patient was seen evaluated by the anesthesia department once cleared for surgery was brought back to the operative suite. Patient was kept on [facility] in supine position all bony prominences were well-padded patient properly secured to the bed. Right upper extremity was then placed onto an armboard. A nonsterile tourniquet was applied to the Right upper arm. Patient underwent anesthesia per the anesthesia department. Patient's Right upper extremity was then prepped and draped in standard orthopedic fashion. Final timeout performed. Patient received appropriate preoperative antibiotics. Under sterile aseptic technique patient received local anesthesia over the preplanned carpal tunnel incision site and right index finger trigger Esmarch was used to exsanguinate the Right upper extremity and tourniquet was insufflated to 250 mmHg. A standard mini open Right carpal tunnel incision was made. Starting distally at Degroot's cardinal line in line with the fourth ray extending proximally distal to the wrist crease centered over the carpal tunnel. Sharp scalpel incision was made through skin and subcutaneous tissue. Self-retaining retractor was placed and the palmar fascia was identified. This was then split longitudinally and direct visualization of the transverse carpal ligament was then made. I then utilizing scalpel feathered through the transverse carpal ligament until I entered the floor of the transverse carpal tunnel ligament into the carpal tunnel. Next I switched to dissection scissors and completed my release of the transverse carpal ligament distally with care to protect the recurrent motor branch. I completely released into the palmar fat and until no entrapment was noted distally. Care was made to protect the superficial palmar arch during my distal dissection. Next I utilized a nasal speculum placed on top of the transverse carpal ligament and utilize this to retract the subcutaneous fat and tissue and under direct loupe magnification was able to identify the transverse carpal ligament. Next I then protected the contents of the carpal tunnel and subsequently utilizing dissection scissors under loupe magnification completely released the transverse carpal ligament proximally into the antebrachial fascia. Care was made to protect the palmar cutaneous branch by keeping my scissors curved ulnarly. Once completely released, I then placed my Rowan and had appropriate decompression of the carpal tunnel proximally as well as distally. I then inspected the contents of the carpal tunnel which showed an hourglass shape of the median nerve showing its compression. No masses were noted. Tendons appeared healthy. Wound was then thoroughly irrigated. Next my attention was turned towards the right index finger trigger. Patient was already appropriately anesthetized a standard oblique incision was made centering over the A1 td following patient's flexor crease of the right index finger. sharp scalpel incision was made only through skin and then switched to Littler dissection scissors and spread longitudinally directly over the flexor tendon sheath.? I then mobilized both radially and ulnarly and Kasdan retractors were used and placed by my learning and development assistant to protect neurovascular bundle.? Next I visualized the A1 td and this was incised with a scalpel.? I then switched to dissection scissors and released the A1 td both proximally as well as distally to its entirety.? Significant tendon sheath fluid was noted consistent with inflammation.? Mild fraying of the flexor tendons noted but no tear.? At this point I utilized a rag nail and pulled the tendons FDS and FDP out of the incision and no?triggering was noted.? I then had anesthesia wake up the patient and patient was able to actively flex and extend with no?triggering.? This point thorough irrigation was performed.? Tourniquet deflated hemostasis satisfactory with bipolar.? I then subsequently closed the incisions with interrupted nylon suture.? Xeroform 4 x 4's, Kerlix and an Alvaro wrap was applied for a bulky soft dressing.? Patient was then subsequently awakened from anesthesia and taken to PACU in stable condition tolerated procedure without issues. Disposition: Patient taken to PACU in stable condition recovering well. Dressing clean dry and intact. Patient will receive appropriate discharge instructions as well as pain medication postoperatively. Patient to follow-up with me in the office in 2 weeks. They understand they may be weightbearing as tolerated to the right hand, recommend limit heavy lifting. patient should keep incision clean dry and intact. Patient understands if any questions or concerns may contact the office.
[2024-12-03 09:12] VITALS: BP 86/74; PULSE 80; RESP 16; O2SAT 96
[2024-12-03 09:16] VITALS: BP 92/71; PULSE 73; RESP 16; TEMP 36.2; O2SAT 94
[2024-12-03 09:18] VITALS: BP 96/75; PULSE 67; RESP 12; TEMP 36.2; O2SAT 94
[2024-12-03 09:44] VITALS: BP 104/67; PULSE 68; RESP 18; O2SAT 94
--- NOTE | 2024-12-03 13:56 | ANE.PACU2 ---
Inpatient post-anesthesia follow up: Airway intact: Yes Vital signs: Temperature 97.2 F Pulse Rate 68 Respiratory Rate 18 Blood Pressure 104/67 Pulse Oximetry 94 Oxygen Delivery Me thod Room Air Oxygen Flow Rate Fraction of Inspir ed Oxygen Hydration adequate: Yes Nausea and vomiting: No Pain level: 1 Mental status: Baseline
== END 2024-12-03 10:05 | disposition home or self-care (01) ==
PROVIDERS: PCP Family Medicine; Visit Provider Student in an Organized Health Care Education/Training Program
PROC: (CPT 64721; principal; 2024-12-03 08:25)
PROC: (CPT 26055; 2024-12-03 08:25)
DX: G56.01 Carpal tunnel syndrome, right upper limb (principal); M65.321 Trigger finger, right index finger; J45.909 Unspecified asthma, uncomplicated; E11.9 Type 2 diabetes mellitus without complications; E78.5 Hyperlipidemia, unspecified; E66.01 Morbid (severe) obesity due to excess calories; Z68.34 Body mass index [BMI] 34.0-34.9, adult; I25.10 Atherosclerotic heart disease of native coronary artery without angina pectoris; Z95.5 Presence of coronary angioplasty implant and graft; I10 Essential (primary) hypertension; Z79.82 Long term (current) use of aspirin; Z79.4 Long term (current) use of insulin; Z79.84 Long term (current) use of oral hypoglycemic drugs; G47.33 Obstructive sleep apnea (adult) (pediatric); F17.210 Nicotine dependence, cigarettes, uncomplicated
CPT/HCPCS: 64721; 26055; 36416; 82962; J0131; J0690; J1885; J2704; J2795; J3010; J7030; J9999

== ENCOUNTER → 2024-12-15 09:17 | Outpatient (BNVA) | payer MEDICARE, SELFPAY | PROVIDERS: PCP Family Medicine; Visit Provider Family Medicine | DX: I10 Essential (primary) hypertension (principal); E78.2 Mixed hyperlipidemia; I25.10 Atherosclerotic heart disease of native coronary artery without angina pectoris; E11.65 Type 2 diabetes mellitus with hyperglycemia; R53.83 Other fatigue | CPT/HCPCS: 80053; 80061; 83036; 84439; 84443; 85025 ==

== ENCOUNTER → 2024-12-16 07:54 | Outpatient (BNVA) | payer MEDICARE, SELFPAY | PROVIDERS: PCP Family Medicine; Visit Provider Physician Assistant | DX: Z98.890 Other specified postprocedural states (principal) | CPT/HCPCS: 99024 ==

== ENCOUNTER 2024-12-22 15:47 | Outpatient (RCR) | payer MEDICARE, SELFPAY | END 2024-12-24 23:55 | disposition home or self-care (01) | LOC: SOT 15:47 | PROVIDERS: PCP Family Medicine; Visit Provider Student in an Organized Health Care Education/Training Program | DX: G56.01 Carpal tunnel syndrome, right upper limb (principal) | CPT/HCPCS: 97165; 97530; 99213 ==

== ENCOUNTER 2024-12-25 05:00 | Outpatient (RCR) | payer MEDICARE, SELFPAY | END 2025-01-24 23:59 | disposition home or self-care (01) | LOC: SOT 05:00 | PROVIDERS: PCP Family Medicine; Visit Provider Student in an Organized Health Care Education/Training Program | DX: G56.01 Carpal tunnel syndrome, right upper limb (principal) | CPT/HCPCS: 97530 ==

== ENCOUNTER → 2025-01-08 09:19 | Outpatient (BNVA) | payer MEDICARE, SELFPAY | PROVIDERS: PCP Family Medicine; Visit Provider Physician Assistant | DX: T81.31XA Disruption of external operation (surgical) wound, not elsewhere classified, initial encounter (principal); Z98.890 Other specified postprocedural states; Y83.8 Other surgical procedures as the cause of abnormal reaction of the patient, or of later complication, without mention of misadventure at the time of the procedure | CPT/HCPCS: 99024 ==

== ENCOUNTER 2025-02-02 10:25 | Outpatient (CLI) | payer MEDICARE, SELFPAY ==
--- NOTE | 2025-02-02 10:35 | XR_ITS ---
WS: [id number] Lumbar spine with flexion, extension, and neutral lateral, 02/02/2025 Clinical Data: LUMBAR RADICULOPATHY Comparison: Lumbar spine, 11/16/2019r Findings: The anterior subluxation of L3 on L4 is 0.408 cm which reduces to 0.365 cm on flexion and changes to 0.399 cm on extension. The anterior subluxation of L4 and L5 is 0.803 cm which is 1.052 cm on flexion and 0.704 cm on extension. No new compression fractures are seen. There is osteoporosis. There is a wedge deformity of the L1 vertebral body. The disc heights are preserved. The abdominal aorta shows calcification but no aneurysm. XR/XR lumbar spine f/e only [id number] Impression: 1. Grade 1 anterolisthesis of L3 on L4 which reduces on flexion and extension. 2. Grade 1 anterolisthesis of L4 on L5 which increases on flexion and decreases on extension. 3. Osteoporosis and wedge deformity of L1 unchanged.
== END 2025-02-02 10:26 | disposition home or self-care (01) ==
PROVIDERS: PCP Family Medicine; Visit Provider General Practice
DX: M54.16 Radiculopathy, lumbar region (principal); M81.8 Other osteoporosis without current pathological fracture
CPT/HCPCS: 72120

== ENCOUNTER → 2025-03-05 09:16 | Outpatient (BNVA) | payer MEDICARE, SELFPAY | PROVIDERS: PCP Family Medicine; Visit Provider Physician Assistant | DX: Z98.890 Other specified postprocedural states (principal) | CPT/HCPCS: 99213 ==

== ENCOUNTER → 2025-04-01 10:47 | Outpatient (BNVA) | payer MEDICARE, SELFPAY | PROVIDERS: PCP Family Medicine; Visit Provider Internal Medicine Cardiovascular Disease | DX: I25.10 Atherosclerotic heart disease of native coronary artery without angina pectoris (principal); I35.8 Other nonrheumatic aortic valve disorders; I10 Essential (primary) hypertension; E78.2 Mixed hyperlipidemia; E11.65 Type 2 diabetes mellitus with hyperglycemia; F17.210 Nicotine dependence, cigarettes, uncomplicated; Z79.4 Long term (current) use of insulin; Z79.84 Long term (current) use of oral hypoglycemic drugs | CPT/HCPCS: 99214 ==